=== PATIENT | female | born 1985 | race Caucasian/White ===

== ENCOUNTER 2017-06-18 23:32 | Emergency (ER) | payer OTHER ==
--- NOTE | 2017-06-18 23:50 | EDM.PDOC ---
ED HPI GENERAL MEDICAL PROBLEM - General Stated Complaint: 9 WEEKS AND IS SPOTTING Time Seen by Provider: 06/18/17 23:47 Source of Information: Reports: Patient - History of Present Illness INITIAL COMMENTS - FREE TEXT/NARRATIVE: HISTORY AND PHYSICAL: History of present illness: []32-year-old 01 at 9 weeks by uncertain dates no wall be care during this outside of diagnosing the Presents with vaginal bleeding/spotting that began yesterday some heavier flow today with passage of a couple of clots no low back pain some mild 2 out of 10 pelvic crampy pain No fever nausea vomiting chills sweats no chest pain shortness breath headache dizziness palpitation about a urine symptoms No low back pain Patient previously gave to a viable male at term with no complication Review of systems: As per history of present illness and below otherwise all systems reviewed and negative. Past medical history: As per history of present illness and as reviewed below otherwise noncontributory. Surgical history: As per history of present illness and as reviewed below otherwise noncontributory. Social history: No reported history of drug or alcohol abuse. Family history: As per history of present illness and as reviewed below otherwise noncontributory. Physical exam: HEENT: Atraumatic, normocephalic, pupils reactive, negative for conjunctival pallor or scleral icterus, mucous membranes moist, throat clear, neck supple, nontender, trachea midline. Lungs: Clear to auscultation, breath sounds equal bilaterally, chest nontender. Heart: S1S2, regular, negative for clicks, rubs, or JVD. Abdomen: Soft, nondistended, nontender. Negative for masses or hepatosplenomegaly. Negative for costovertebral tenderness. Pelvis: Stable nontender. Genitourinary: External vaginal exam a mass scarred lesion internal there is blood in the vaginal vault with a couple of small clots no products of conception no discharge cervix appears to be starting to open to a fingertip but is not fully open at this time Rectal: Deferred. Extremities: Atraumatic, negative for cords or calf pain. Neurovascular unremarkable. Neuro: Awake, alert, oriented. Cranial nerves II through XII unremarkable. Cerebellum unremarkable. Motor and sensory unremarkable throughout. Exam nonfocal. Diagnostics: []Lab as below Ultrasound OB [employer]: [][place] 5 per 325 one to 2 tab by mouth every 4-6 hours when necessary #30 no refill Return if symptoms persist or worsen or intractable pain vomiting or fever Follow-up with OB on Tuesday as scheduled Dr. cox Impression: Threatened Cervix appears to be closed at this time but on exam starting to open to a fingertip []32-year-old female 01 LMP April 15, 2017 ABO type B positive 9-2/7 weeks by uncertain dates Ultrasound is consistent with gestational sac and IUP a 6-7 week no heart activity Definitive disposition and diagnosis as appropriate pending reevaluation and review of above. 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 ED EXAM, GENERAL - Physical Exam Exam: See Below Course - Vital Signs Last Recorded V/S: Last Vital Signs Temp 36.1 C 06/18/17 23:47 Pulse 60 06/19/17 00:49 Resp 16 06/19/17 00:49 BP 129/76 06/19/17 00:49 Pulse Ox 97 06/19/17 00:49 - Orders/Labs/Meds Orders: Active Orders 24 hr Category Date Time Status OB Ltd 1 or More Fetus [US] Stat Exams 06/18/17 23:39 Taken Labs: Laboratory Tests 06/18/17 06/19/17 06/19/17 Range/Units 23:55 00:03 00:03 WBC 8.95 (4.0-11.0) K/uL RBC 4.16 L (4.30-5.90) M/uL Hgb 12.7 (12.0-16.0) g/dL Hct 37.1 (36.0-46.0) % MCV 89.2 (80.0-98.0) fL MCH 30.5 (27.0-32.0) pg MCHC 34.2 (31.0-37.0) g/dL RDW Std Deviation 39.3 (28.0-62.0) fl RDW Coeff of Jay 12 (11.0-15.0) % Plt Count 273 (150-400) K/uL MPV 10.90 (7.40-12.00) fL Neut % (Auto) 62.2 (48.0-80.0) % Lymph % (Auto) 28.9 (16.0-40.0) % [place] % (Auto) 7.3 (0.0-15.0) % Eos % (Auto) 1.5 (0.0-7.0) % Baso % (Auto) 0.1 (0.0-1.5) % Neut # (Auto) 5.6 (1.4-5.7) K/uL Lymph # (Auto) 2.6 H (0.6-2.4) K/uL [place] # (Auto) 0.7 (0.0-0.8) K/uL Eos # (Auto) 0.1 (0.0-0.7) K/uL Baso # (Auto) 0.0 (0.0-0.1) K/uL Nucleated RBC % 0.0 /100WBC Nucleated RBCs # 0 K/uL Sodium 140 (136-146) mmol/L Potassium 4.3 (3.5-5.1) mmol/L Chloride 103 (98-110) mmol/L Carbon Dioxide 26 (21-31) mmol/L BUN 15 (6.0-23.0) mg/dL Creatinine 0.8 (0.6-1.5) mg/dL Est Cr Clr Drug Dosing 99.08 mL/min Estimated GFR (MDRD) > 60.0 ml/min Glucose 89 (60-110) mg/dL Calcium 9.8 (8.8-10.8) mg/dL Total Bilirubin 0.4 (0.1-1.5) mg/dL AST 17 (5-40) IU/L ALT 14 (8-54) IU/L Alkaline Phosphatase 82 (40-150) Total Protein 7.3 (6.0-8.0) g/dL Albumin 4.2 (3.5-5.0) g/dL Globulin 3.1 (2.0-3.5) g/dL Albumin/Globulin Ratio 1.4 (1.3-2.8) HCG, Quant 20686.7 mIU/mL Urine Color YELLOW Urine Appearance CLEAR Urine pH 6.0 (5.0-8.0) Ur Specific [place] 1.015 (1.001-1.035) Urine Protein NEGATIVE (NEGATIVE) mg/dL Urine Glucose (UA) NEGATIVE (NEGATIVE) mg/dL Urine Ketones NEGATIVE (NEGATIVE) mg/dL Urine Occult Blood LARGE H (NEGATIVE) Urine Nitrite NEGATIVE (NEGATIVE) Urine Bilirubin NEGATIVE (NEGATIVE) Urine Urobilinogen 0.2 (<2.0) EU/dL Ur Leukocyte Esterase NEGATIVE (NEGATIVE) Urine RBC 15-35 (0-2/HPF) Urine WBC 0-2 (0-5/HPF) Ur Epithelial Cells RARE (NONE-FEW) Urine Bacteria FEW (NEGATIVE) Urine Mucus RARE (NONE-MOD) Blood Type 06/19/17 Range/Units 00:03 WBC (4.0-11.0) K/uL RBC (4.30-5.90) M/uL Hgb (12.0-16.0) g/dL Hct (36.0-46.0) % MCV (80.0-98.0) fL MCH (27.0-32.0) pg MCHC (31.0-37.0) g/dL RDW Std Deviation (28.0-62.0) fl RDW Coeff of Jay (11.0-15.0) % Plt Count (150-400) K/uL MPV (7.40-12.00) fL Neut % (Auto) (48.0-80.0) % Lymph % (Auto) (16.0-40.0) % [place] % (Auto) (0.0-15.0) % Eos % (Auto) (0.0-7.0) % Baso % (Auto) (0.0-1.5) % Neut # (Auto) (1.4-5.7) K/uL Lymph # (Auto) (0.6-2.4) K/uL [place] # (Auto) (0.0-0.8) K/uL Eos # (Auto) (0.0-0.7) K/uL Baso # (Auto) (0.0-0.1) K/uL Nucleated RBC % /100WBC Nucleated RBCs # K/uL Sodium (136-146) mmol/L Potassium (3.5-5.1) mmol/L Chloride (98-110) mmol/L Carbon Dioxide (21-31) mmol/L BUN (6.0-23.0) mg/dL Creatinine (0.6-1.5) mg/dL Est Cr Clr Drug Dosing mL/min Estimated GFR (MDRD) ml/min Glucose (60-110) mg/dL Calcium (8.8-10.8) mg/dL Total Bilirubin (0.1-1.5) mg/dL AST (5-40) IU/L ALT (8-54) IU/L Alkaline Phosphatase (40-150) Total Protein (6.0-8.0) g/dL Albumin (3.5-5.0) g/dL Globulin (2.0-3.5) g/dL Albumin/Globulin Ratio (1.3-2.8) HCG, Quant mIU/mL Urine Color Urine Appearance Urine pH (5.0-8.0) Ur Specific [place] (1.001-1.035) Urine Protein (NEGATIVE) mg/dL Urine Glucose (UA) (NEGATIVE) mg/dL Urine Ketones (NEGATIVE) mg/dL Urine Occult Blood (NEGATIVE) Urine Nitrite (NEGATIVE) Urine Bilirubin (NEGATIVE) Urine Urobilinogen (<2.0) EU/dL Ur Leukocyte Esterase (NEGATIVE) Urine RBC (0-2/HPF) Urine WBC (0-5/HPF) Ur Epithelial Cells (NONE-FEW) Urine Bacteria (NEGATIVE) Urine Mucus (NONE-MOD) Blood Type B POSITIVE Departure - Departure Time of Disposition: 01:18 Disposition: Home, Self-Care 01 Condition: Good Clinical Impression: Threatened - Discharge Information Additional Instructions: [][place] 5 per 325 one to 2 tab by mouth every 4-6 hours when necessary #30 no refill Return if symptoms persist or worsen or intractable pain vomiting or fever Follow-up with OB on Tuesday as scheduled Dr. cox The following information is given to patients seen in the emergency department who are being discharged to home. This information is to outline your options for follow-up care. We provide all patients seen in our emergency department with a follow-up referral. The need for follow-up, as well as the timing and circumstances, are variable depending upon the specifics of your emergency department visit. If you don't have a primary care physician on staff, we will provide you with a referral. We always advise you to contact your personal physician following an emergency department visit to inform them of the circumstance of the visit and for follow-up with them and/or the need for any referrals to a consulting specialist. The emergency department will also refer you to a specialist when appropriate. This referral assures that you have the opportunity for follow-up care with a specialist. All of these measure are taken in an effort to provide you with optimal care, which includes your follow-up. Under all circumstances we always encourage you to contact your private physician who remains a resource for coordinating your care. When calling for follow-up care, please make the office aware that this follow-up is from your recent emergency room visit. If for any reason you are refused follow-up, please contact the [facility] emergency department at and asked to speak to the emergency department charge nurse. - My Orders Last 24 Hours: My Active Orders 06/18/17 23:39 OB Ltd 1 or More Fetus [US] Stat - Assessment/Plan Last 24 Hours: My Active Orders 06/18/17 23:39 OB Ltd 1 or More Fetus [US] Stat
[2017-06-19 00:40] LABS: CHLORIDE,CL 103 mmol/L (98-110); SODIUM,NA 140 mmol/L (136-146)
[2017-06-19 01:41] VITALS: BP 132/76
--- NOTE | 2017-06-20 12:33 | US ---
EXAM DATE: 06/18/17 PATIENT'S AGE: 32 Patient: SOPHIA SALMON Facility: [place], [place] Site . Site : [id number] Study: US OB Pelvis [id number]/13/2017 12:28:04 AM Ordering Physician: Doctor Johnson Final Report: INDICATION: . Bleeding. TECHNIQUE: Ultrasound OB pelvis transvaginal. Real time contreras scale imaging of the pelvis was performed. Color and spectral Doppler evaluation of the ovaries was performed. COMPARISON: None FINDINGS: An oblong gestational sac is identified averaging 2.1 cm corresponding to gestational age of 7 weeks 1 day. A yolk sac is identified. Possible small pole measuring 0.45 cm corresponding to gestational age of 6 weeks 2 days. No cardiac activity is identified. No subchorionic hemorrhage. The right ovary measures 2.0 x 1.7 x 1.7 cm. No ovarian or adnexal mass. Normal arterial and venous flow. The left ovary measures 3.0 x 1.3 x 2.5 cm. No ovarian or adnexal mass. Normal arterial and venous flow. No free fluid in the pelvis. IMPRESSION: Findings are consistent with early IUP. However, the gestational sac is somewhat abnormal in shape and appearance. Recommend beta HCG and ultrasound follow-up. Dictated by Elmo Tyler MD @ 06/19/2017 1:02:36 AM Dictated by: Elmo Tyler MD @ 06/19/2017 01:03:25 (Electronic Signature) Report Signed by Proxy. TERI
== END 2017-06-19 01:30 | disposition home or self-care (01) ==
LOC: MW.ED 23:32
DX: O20.0 Threatened abortion (principal); J45.909 Unspecified asthma, uncomplicated; Z3A.09 9 weeks gestation of pregnancy
CPT/HCPCS: 36415; 76815; 76815-26; 80053; 81001; 84702; 85025; 86900; 86901; 99282; 99284-25

== ENCOUNTER 2018-05-03 19:47 | Inpatient (IN) | payer OTHER ==
[2018-05-03] MEDS ORDERED: Sodium Chloride 0.9% 10 ML Syringe FLUSH PRN (23:13)
[2018-05-03] MEDS ORDERED: Sodium Chloride 0.9% 2.5 ML Syringe FLUSH PRN (23:13)
[2018-05-03] MEDS ORDERED: Butorphanol 1 MG/ML SDV IVPUSH PRN (23:13)
[2018-05-03] MEDS ORDERED: Lidocaine 1% 50 ML MDV INJECT PRN (23:13)
[2018-05-03] MEDS ORDERED: Methylergonovine 0.2 MG/1 ML Amp IM PRN (23:13)
[2018-05-03] MEDS ORDERED: Carboprost Tromethamine 250 MCG/1 ML Amp IM PRN (23:13)
[2018-05-03] MEDS ORDERED: Nalbuphine 10 MG/1 ML Vial IVPUSH PRN (23:13)
[2018-05-03] MEDS ORDERED: Water For Irrigation,Sterile 1,000 ML Container IRR PRN (23:13)
[2018-05-03] MEDS ORDERED: Misoprostol 200 MCG Tab PO PRN (23:13)
[2018-05-03] MEDS ORDERED: Tranexamic Acid 1,000 MG in Sodium Chloride 0.9% 100 ML IV PRN (23:13)
[2018-05-03] MEDS ORDERED: Oxytocin/0.9 % Sodium Chloride 30 UNIT/500 ML BAG IV SCH (23:15)
[2018-05-03] MEDS ORDERED: Ampicillin 2 GM in Sodium Chloride 0.9% 100 ML IV ONE (23:45)
[2018-05-03] MEDS: Lactated Ringers 1,000 ML IV SCH (23:45)
[2018-05-04] MEDS: Ampicillin 1 GM in Sodium Chloride 0.9% 50 ML IV SCH ×3 (03:45→11:45)
[2018-05-04] MEDS: Lactated Ringers 1,000 ML IV SCH ×3 (03:45→13:09)
--- NOTE | 2018-05-04 04:09 | PCM.PREANE ---
Preanesthetic Assessment - Anesthesia/Transfusion/Family Hx Anesthesia History: Prior Anesthesia Without Reaction Transfusion History: No Prior Transfusion(s) - Review of Systems General: No Symptoms Pulmonary: No Symptoms Cardiovascular: No Symptoms Gastrointestinal: No Symptoms Neurological: No Symptoms Other: Reports: None - Physical Assessment Height: 5 ft 6.5 in Weight: 108.862 kg ASA Class: 2 Mental Status: Alert & Oriented x3 Airway Class: Mallampati = 2 Dentition: Reports: Normal Dentition Thyro-Mental Finger Breadths: 3 Mouth Opening Finger Breadths: 3 ROM/Head Extension: Full Lungs: Clear to Auscultation, Normal Respiratory Effort Cardiovascular: Regular Rate, Regular Rhythm - Lab Values: Laboratory Last Values WBC 7.91 K/uL (4.0-11.0) 05/03/18 23:30 RBC 3.95 M/uL (4.30-5.90) L 05/03/18 23:30 Hgb 11.8 g/dL (12.0-16.0) L 05/03/18 23:30 Hct 35.0 % (36.0-46.0) L 05/03/18 23:30 MCV 88.6 fL (80.0-98.0) 05/03/18 23:30 MCH 29.9 pg (27.0-32.0) 05/03/18 23:30 MCHC 33.7 g/dL (31.0-37.0) 05/03/18 23:30 RDW Std Deviation 39.0 fl (28.0-62.0) 05/03/18 23:30 RDW Coeff of Jay 13 % (11.0-15.0) 05/03/18 23:30 Plt Count 246 K/uL (150-400) 05/03/18 23:30 MPV 11.90 fL (7.40-12.00) 05/03/18 23:30 Blood Type B POSITIVE 05/03/18 23:30 Antibody Screen NEGATIVE 05/03/18 23:30 - Allergies Allergies/Adverse Reactions: Allergies Allergy/AdvReac Type Severity Reaction Status Date / Time No Known Allergies Allergy Verified 03/22/18 00:05 - Acknowledgements Anesthesia Type Planned: Epidural Pt an Appropriate Candidate for the Planned Anesthesia: Yes Alternatives and Risks of Anesthesia Discussed w Pt/Guardian: Yes Pt/Guardian Understands and Agrees with Anesthesia Plan: Yes PreAnesthesia Questionnaire HEENT History: Reports: None Cardiovascular History: Reports: None Respiratory History: Reports: Asthma Gastrointestinal History: Reports: GERD Genitourinary History: Reports: None 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 Respiratory Surgical History: Reports: None Musculoskeletal Surgical History: Reports: Arthroscopic Knee, Other (See Below) Other Musculoskeletal Surgeries/Procedures:: Right wrist bone graft. - SUBSTANCE USE Smoking Status *Q: Never Smoker Tobacco Use Within Last Twelve Months: No Second Hand Smoke Exposure: No Recreational Drug Use History: No - HOME MEDS Home Medications: Home Meds Albuterol [Ventolin HFA] 8 gm INH ASDIRECTED 06/18/17 [History] Pnv No.95/Ferrous Fum/Folic AC [ Multivitamin Tablet] 1 each PO DAILY [History] Omeprazole Magnesium [Prilosec Otc] 20 mg PO DAILY 04/30/18 [History] - CURRENT (IN HOUSE) MEDS Current Meds: Current Medications Butorphanol Tartrate (Stadol) 1 mg IVPUSH Q1H PRN PRN Reason: Pain Carboprost Tromethamine (Hemabate Ds) 250 mcg IM ASDIRECTED PRN PRN Reason: Post Hemorrhage Tranexamic Acid 1,000 mg/ (Sodium Chloride) 110 mls @ 660 mls/hr IV ONETIME PRN PRN Reason: Bleeding Lactated Ringer's (Ringers, Lactated) 1,000 mls @ 150 mls/hr IV ASDIRECTED DONNA Last Admin: 05/04/18 03:45 Dose: 999 mls/hr Oxytocin/Sodium Chloride (Oxytocin 30 Unit/500 Ml-Ns) 30 unit in 500 mls @ 999 mls/hr IV TITRATE DONNA Ampicillin Sodium 1 gm/ Sodium (Chloride) 50 mls @ 100 mls/hr IV Q4H DONNA Last Admin: 05/04/18 03:45 Dose: 100 mls/hr Lidocaine HCl (Xylocaine 1%) 50 ml INJECT .ONCE PRN PRN Reason: Laceration repair Methylergonovine Maleate (Methergine) 0.2 mg IM ASDIRECTED PRN PRN Reason: Post Hemorrhage Misoprostol (Cytotec) 200 mcg PO .ONCE PRN PRN Reason: Post Hemorrhage Nalbuphine HCl (Nubain) 10 mg IVPUSH Q1H PRN PRN Reason: Pain (severe 7-10) Sodium Chloride (Saline Flush) 10 ml FLUSH ASDIRECTED PRN PRN Reason: Keep Vein Open Sodium Chloride (Saline Flush) 2.5 ml FLUSH ASDIRECTED PRN PRN Reason: Keep Vein Open Sterile Water (Sterile Water For Irrigation) 1,000 ml IRR ASDIRECTED PRN PRN Reason: delivery Discontinued Medications Ampicillin Sodium 2 gm/ Sodium (Chloride) 100 mls @ 200 mls/hr IV ONETIME ONE Stop: 05/04/18 00:14 Last Admin: 05/03/18 23:50 Dose: 200 mls/hr
[2018-05-04] MEDS ORDERED: Oxytocin/0.9 % Sodium Chloride 30 UNIT/500 ML BAG IV SCH (11:45)
[2018-05-04] MEDS ORDERED: Docusate Sodium 100 MG Cap PO PRN (14:43)
[2018-05-04] MEDS ORDERED: Lanolin 100% Cream 7 GM Tube TOP PRN (14:43)
[2018-05-04] MEDS ORDERED: Benzocaine/Menthol 20%-0.5% Spray 78 GM Cannister TOP PRN (14:43)
[2018-05-04] MEDS ORDERED: oxyCODONE 5 MG Tab PO PRN (14:43)
[2018-05-04] MEDS ORDERED: Bisacodyl 10 MG Supp RECTAL PRN (14:43)
[2018-05-04] MEDS ORDERED: Witch Hazel Medicated Pads 40/Jar TOP PRN (14:43)
[2018-05-04] MEDS ORDERED: Aluminum Hydroxide/Magnesium Hydroxide/Simethicone Susp 30 ML Cup PO PRN (14:43)
[2018-05-04] MEDS ORDERED: Ibuprofen 400 MG Tab PO PRN (14:43)
[2018-05-04] MEDS ORDERED: Acetaminophen 500 MG Tab PO PRN ×2 (14:43)
--- NOTE | 2018-05-04 14:48 | PCM.OPNOTE ---
- General Post-Op/Procedure Note Date of Surgery/Procedure: 05/04/18 Operative Procedure(s): /IP Findings: Viable female, APGARs 9, 9 weight pending. Spontaneous delivery intact placenta with 3V cord Pre Op Diagnosis: 37/6 week IUP. Labor. GBBS + Post-Op Diagnosis: Same Anesthesia Technique: Epidural Primary Surgeon: Rola Hale EBL in mLs: 300 Condition: Good Free Text/Narrative:: Dictation [id number]
--- NOTE | 2018-05-04 17:26 | OR ---
SURGEON: Rola Hale M.D. DATE OF PROCEDURE: 05/04/2018 PREOPERATIVE DIAGNOSES: 1. 37 and 6-week intrauterine . 2. Labor. 3. Group B beta strep positive. POSTOPERATIVE DIAGNOSIS: 1. 37 and 6-week intrauterine . 2. Labor. 3. Group B beta strep positive. PROCEDURE: Spontaneous vaginal delivery, intact perineum. ANESTHESIA: Epidural. ESTIMATED BLOOD LOSS: 300 mL. COMPLICATIONS: None. FINDINGS: Viable female, scores 9 at 1 minute, 9 at 5 minutes. Weight is pending. Spontaneous delivery, intact placenta, 3-vessel cord. DISPOSITION: Infant to nursery, mom in LDRP. PROCEDURE DETAILS: Shannan is a 33-year-old, G2, P1, at 37 and 6 weeks' gestational age, who presented yesterday evening with regular contractions every 2 to 4 minutes. With observation, she changed her cervix from 4 cm dilatation to 5 cm dilatation; therefore, she was admitted, routine labs were drawn, IV hydration was initiated. She was also initiated on ampicillin prophylaxis. She did continue to progress slowly through the sausage smoker hours, underwent regional anesthesia from epidural, shortly before 9:00 a.m. was found to be 67 cm, 80% effaced, 0 station. Amniotomy was performed as she has had 3 doses of her IV antibiotics. Clear fluid was returned. Over the next few hours, the patient still made minimal cervical change past 7 cm dilatation, and contractions are now spacing apart, 4 to 6 minutes apart. Therefore, she was initiated on Pitocin augmentation, responded nicely to this and continued to progress, shortly before 2:00 p.m. was found to be complete, 100% effaced, +2 station, pushed readily to a +3 station, I was called for delivery. Upon my arrival, the patient was placed in modified dorsal position, was prepped and draped in the usual aseptic manner. Continued with pushing efforts, pushed to +4 station, was able to deliver 's head atraumatically, spontaneously, followed by anterior shoulder, posterior shoulder, and remaining body without difficulty. The infant's oropharynx and nares were bulb suctioned. Cord was clamped x2 and cut. Infant was handed off to her mother, attending nursing staff at her side. Cord arterial, cord venous, cord blood sampling obtained. Light pressure was applied while the placenta was delivered spontaneously intact. Vigorous fundal uterine massage was then applied while 30 units of Pitocin was delivered in 500 mL IV fluid. Upon inspection of cervix, vaginal side, and perineum, these were found to be intact. Uterus remained firm. Sponge count is correct. The patient remained in LDRP. Infant to nursery. VIDAL / DARSHANA /[id number]
[2018-05-05] MEDS: Ibuprofen 800 MG Tab PO PRN ×2 (00:18→09:57)
--- NOTE | 2018-05-05 07:45 | PCM48HPAN ---
Post Anesthesia Note - EVALUATION WITHIN 48HRS OF ANESTHETIC Vital Signs in Normal Range: Yes Patient Participated in Evaluation: Yes Respiratory Function Stable: Yes Airway Patent: Yes Cardiovascular Function Stable: Yes Hydration Status Stable: Yes Pain Control Satisfactory: Yes Nausea and Vomiting Control Satisfactory: Yes Mental Status Recovered: Yes Resp Rate: 20
--- NOTE | 2018-05-05 08:02 | PCM.PNPP ---
<Randa Haro - Last Filed: 05/05/18 08:00> - General Info Date of Service: 05/05/18 Functional Status: Reports: Pain Controlled, Tolerating Diet, Ambulating, Urinating - Review of Systems General: Denies: Fever, Weakness, Fatigue Pulmonary: Denies: Shortness of Breath, Pleuritic Chest Pain, Cough Cardiovascular: Denies: Chest Pain, Palpitations, Dyspnea on Exertion Gastrointestinal: Denies: Abdominal Pain Genitourinary: Denies: Dysuria - General Info Date of Service: 05/05/18 - Patient Data Vital Signs - Most Recent: Last Vital Signs Temp 36.6 C 05/05/18 04:00 Pulse 86 05/04/18 20:09 Resp 20 05/05/18 07:44 BP 126/58 L 05/05/18 04:00 Pulse Ox 96 05/05/18 04:00 Weight - Most Recent: 108.862 kg Lab Results - Last 24 Hours: Laboratory Results - last 24 hr 05/05/18 Range/Units 05:04 Hgb 10.5 L (12.0-16.0) g/dL Hct 31.2 L (36.0-46.0) % Med Orders - Current: Current Medications Acetaminophen (Tylenol Extra Strength) 500 mg PO Q4H PRN PRN Reason: Pain Acetaminophen (Tylenol Extra Strength) 1,000 mg PO Q4H PRN PRN Reason: Pain Al Hydroxide/Mg Hydroxide (Mag-Al Plus) 30 ml PO Q8H PRN PRN Reason: Heartburn Benzocaine/Menthol (Dermoplast Pain Relief 20%-0.5% Arion) 78 gm TOP ASDIRECTED PRN PRN Reason: Perineal Comfort Measure Last Admin: 05/04/18 18:15 Dose: 78 gm Bisacodyl (Dulcolax) 10 mg RECTAL .ONCE PRN PRN Reason: Constipation Butorphanol Tartrate (Stadol) 1 mg IVPUSH Q1H PRN PRN Reason: Pain Carboprost Tromethamine (Hemabate Ds) 250 mcg IM ASDIRECTED PRN PRN Reason: Post Hemorrhage Docusate Sodium (Colace) 100 mg PO BID PRN PRN Reason: Constipation Emollient Ointment (Lansinoh Hpa) 0 gm TOP ASDIRECTED PRN PRN Reason: Sore Nipples Last Admin: 05/04/18 18:15 Dose: 7 gm Tranexamic Acid 1,000 mg/ (Sodium Chloride) 110 mls @ 660 mls/hr IV ONETIME PRN PRN Reason: Bleeding Lactated Ringer's (Ringers, Lactated) 1,000 mls @ 150 mls/hr IV ASDIRECTED DONNA Last Admin: 05/04/18 13:09 Dose: 150 mls/hr Oxytocin/Sodium Chloride (Oxytocin 30 Unit/500 Ml-Ns) 30 unit in 500 mls @ 999 mls/hr IV TITRATE DONNA Oxytocin/Sodium Chloride (Oxytocin 30 Unit/500 Ml-Ns) 30 unit in 500 mls @ 2 mls/hr IV TITRATE DONNA; Protocol Last Infusion: 05/04/18 14:33 Dose: 500 munits/min, 500 mls/hr Ibuprofen (Motrin) 400 mg PO Q4H PRN PRN Reason: Pain Ibuprofen (Motrin) 800 mg PO Q6H PRN PRN Reason: Pain Last Admin: 05/05/18 00:18 Dose: 800 mg Methylergonovine Maleate (Methergine) 0.2 mg IM ASDIRECTED PRN PRN Reason: Post Hemorrhage Misoprostol (Cytotec) 200 mcg PO .ONCE PRN PRN Reason: Post Hemorrhage Oxycodone HCl (Oxycodone) 5 mg PO Q2H PRN PRN Reason: Pain Sodium Chloride (Saline Flush) 10 ml FLUSH ASDIRECTED PRN PRN Reason: Keep Vein Open Witvj Sprague (Wernerckbreanna) 1 pad TOP ASDIRECTED PRN PRN Reason: comfort care Last Admin: 05/04/18 18:14 Dose: 1 pad Discontinued Medications Ampicillin Sodium 2 gm/ Sodium (Chloride) 100 mls @ 200 mls/hr IV ONETIME ONE Stop: 05/04/18 00:14 Last Admin: 05/03/18 23:50 Dose: 200 mls/hr Ampicillin Sodium 1 gm/ Sodium (Chloride) 50 mls @ 100 mls/hr IV Q4H DONNA Last Admin: 05/04/18 11:45 Dose: 100 mls/hr Fentanyl/Bupivacaine HCl (Lmzpxvio-Fhgzw-Zz 2 Mcg/Ml-0.125%) Confirm Administered Dose 100 mls @ as directed EP .STK-MED ONE Stop: 05/04/18 04:14 Lidocaine HCl (Xylocaine 1%) 50 ml INJECT .ONCE PRN PRN Reason: Laceration repair Nalbuphine HCl (Nubain) 10 mg IVPUSH Q1H PRN PRN Reason: Pain (severe 7-10) Sodium Chloride (Saline Flush) 2.5 ml FLUSH ASDIRECTED PRN PRN Reason: Keep Vein Open Sterile Water (Sterile Water For Irrigation) 1,000 ml IRR ASDIRECTED PRN PRN Reason: delivery Last Admin: 05/04/18 14:30 Dose: 1,000 ml - Infant Interaction Infant Disposition, : in Room with Family Interaction: Holding Infant Feeding: Breastfed Infant; Nursed Well Support Person: - Recovery Exam Fundal Tone: Firm Fundal Level: 1 Fingerbreadths Below Umbilicus Fundal Placement: Midline Lochia Amount: Scant Lochia Color: Rubra/Red Perineum Description: Intact, Minimal Bruising/Swelling Episiotomy/Laceration: None Bladder Status: Voiding Urinary Elimination: Voided - Exam General: Alert, Oriented Neck: Supple Lungs: Clear to Auscultation, Normal Respiratory Effort Cardiovascular: Regular Rate, Regular Rhythm GI/Abdominal Exam: Normal Bowel Sounds, Soft, Non-Tender, No Distention, No Mass Extremities: Normal Inspection, Normal Capillary Refill, Pedal Edema (trace) Skin: Warm, Dry, Intact Psy/Mental Status: Alert - Problem List Review Problem List Initiated/Reviewed/Updated: Yes - Assessment Assessment:: PPD#1 s/p . Minimal pain and lochia. Breast feeding well. Discharge home today. - Plan Plan:: Discharge instructions reviewed. Pelvic rest for 6 weeks. Continue PNV while breast feeding. Can use OTC ibuprofen/tylenol as needed for pain. Instructed patient to call if she develops fever greater than 101 or bleeding through a large pad an hour. F/U with [facility] in 6 weeks. <Rola Hale - Last Filed: 05/05/18 08:58> - Patient Data Vital Signs - Most Recent: Last Vital Signs Temp 36.5 C 05/05/18 07:30 Pulse 86 05/04/18 20:09 Resp 20 05/05/18 07:44 BP 124/65 05/05/18 07:30 Pulse Ox 95 05/05/18 07:30 Lab Results - Last 24 Hours: Laboratory Results - last 24 hr 05/05/18 Range/Units 05:04 Hgb 10.5 L (12.0-16.0) g/dL Hct 31.2 L (36.0-46.0) % Med Orders - Current: Current Medications Acetaminophen (Tylenol Extra Strength) 500 mg PO Q4H PRN PRN Reason: Pain Acetaminophen (Tylenol Extra Strength) 1,000 mg PO Q4H PRN PRN Reason: Pain Al Hydroxide/Mg Hydroxide (Mag-Al Plus) 30 ml PO Q8H PRN PRN Reason: Heartburn Benzocaine/Menthol (Dermoplast Pain Relief 20%-0.5% Arion) 78 gm TOP ASDIRECTED PRN PRN Reason: Perineal Comfort Measure Last Admin: 05/04/18 18:15 Dose: 78 gm Bisacodyl (Dulcolax) 10 mg RECTAL .ONCE PRN PRN Reason: Constipation Butorphanol Tartrate (Stadol) 1 mg IVPUSH Q1H PRN PRN Reason: Pain Carboprost Tromethamine (Hemabate Ds) 250 mcg IM ASDIRECTED PRN PRN Reason: Post Hemorrhage Docusate Sodium (Colace) 100 mg PO BID PRN PRN Reason: Constipation Emollient Ointment (Lansinoh Hpa) 0 gm TOP ASDIRECTED PRN PRN Reason: Sore Nipples Last Admin: 05/04/18 18:15 Dose: 7 gm Tranexamic Acid 1,000 mg/ (Sodium Chloride) 110 mls @ 660 mls/hr IV ONETIME PRN PRN Reason: Bleeding Lactated Ringer's (Ringers, Lactated) 1,000 mls @ 150 mls/hr IV ASDIRECTED DONNA Last Admin: 05/04/18 13:09 Dose: 150 mls/hr Oxytocin/Sodium Chloride (Oxytocin 30 Unit/500 Ml-Ns) 30 unit in 500 mls @ 999 mls/hr IV TITRATE DONNA Oxytocin/Sodium Chloride (Oxytocin 30 Unit/500 Ml-Ns) 30 unit in 500 mls @ 2 mls/hr IV TITRATE DONNA; Protocol Last Infusion: 05/04/18 14:33 Dose: 500 munits/min, 500 mls/hr Ibuprofen (Motrin) 400 mg PO Q4H PRN PRN Reason: Pain Ibuprofen (Motrin) 800 mg PO Q6H PRN PRN Reason: Pain Last Admin: 05/05/18 00:18 Dose: 800 mg Methylergonovine Maleate (Methergine) 0.2 mg IM ASDIRECTED PRN PRN Reason: Post Hemorrhage Misoprostol (Cytotec) 200 mcg PO .ONCE PRN PRN Reason: Post Hemorrhage Oxycodone HCl (Oxycodone) 5 mg PO Q2H PRN PRN Reason: Pain Sodium Chloride (Saline Flush) 10 ml FLUSH ASDIRECTED PRN PRN Reason: Keep Vein Open Witch Darcie (Tucks) 1 pad TOP ASDIRECTED PRN PRN Reason: comfort care Last Admin: 05/04/18 18:14 Dose: 1 pad Discontinued Medications Ampicillin Sodium 2 gm/ Sodium (Chloride) 100 mls @ 200 mls/hr IV ONETIME ONE Stop: 05/04/18 00:14 Last Admin: 05/03/18 23:50 Dose: 200 mls/hr Ampicillin Sodium 1 gm/ Sodium (Chloride) 50 mls @ 100 mls/hr IV Q4H [facility] Last Admin: 05/04/18 11:45 Dose: 100 mls/hr Fentanyl/Bupivacaine HCl (Zecrlkgo-Gndll-Tg 2 Mcg/Ml-0.125%) Confirm Administered Dose 100 mls @ as directed EP .STK-MED ONE Stop: 05/04/18 04:14 Last Admin: 05/05/18 08:40 Dose: Not Given Lidocaine HCl (Xylocaine 1%) 50 ml INJECT .ONCE PRN PRN Reason: Laceration repair Nalbuphine HCl (Nubain) 10 mg IVPUSH Q1H PRN PRN Reason: Pain (severe 7-10) Sodium Chloride (Saline Flush) 2.5 ml FLUSH ASDIRECTED PRN PRN Reason: Keep Vein Open Sterile Water (Sterile Water For Irrigation) 1,000 ml IRR ASDIRECTED PRN PRN Reason: delivery Last Admin: 05/04/18 14:30 Dose: 1,000 ml - My Orders Last 24 Hours: My Active Orders 05/04/18 11:45 Oxytocin/0.9 % Sodium Chloride [Oxytocin 30 Unit/500 ML-NS] 30 unit in 500 ml IV TITRATE 05/04/18 14:43 Patient Status [ADT] Routine May Shower [RC] ASDIRECTED Up ad Nina [RC] ASDIRECTED Vital Signs [RC] PER UNIT ROUTINE Acetaminophen [Tylenol Extra Strength] 1,000 mg PO Q4H PRN Acetaminophen [Tylenol Extra Strength] 500 mg PO Q4H PRN Alum Hydrox/Mag Hydrox/Simeth [Mag-Al Plus] 30 ml PO Q8H PRN Benzocaine/Menthol [Dermoplast Pain Relief 20%-0.5% Arion] 78 gm TOP ASDIRECTED PRN Bisacodyl [Dulcolax] 10 mg RECTAL .ONCE PRN Docusate Sodium [Colace] 100 mg PO BID PRN Ibuprofen [Motrin] 400 mg PO Q4H PRN Ibuprofen [Motrin] 800 mg PO Q6H PRN Lanolin [Lansinoh HPA] See Dose Instructions TOP ASDIRECTED PRN Witch Darcie [Tucks] 1 pad TOP ASDIRECTED PRN oxyCODONE 5 mg PO Q2H PRN Assess Lochia [WOMSER] Per Unit Routine Assess Uterine Involution [WOMSER] Per Unit Routine Breast Pump [WOMSER] Per Unit Routine Ice Therapy [OM.PC] Per Unit Routine Perineal Care [OM.PC] Per Unit Routine Peripheral IV Discontinue [OM.PC] Routine Sitz Bath [OM.PC] Per Unit Routine 05/04/18 Dinner Regular Diet [DIET] - Plan Plan:: Patient seen and examined--agree with above
[2018-05-05 16:27] VITALS: BP 124/67
== END 2018-05-05 17:45 | disposition home or self-care (01) | DRG 775 ==
LOC: MW.OBCHECK 19:47 → MW.OB 19:49 → MW.OBCHECK 23:13 → OBSVTOIN 05-04 14:33 → MW.OB 05-04 17:00
PROVIDERS: ADMIT General Practice; ATTEND Obstetrics & Gynecology
PROC: 10E0XZZ Delivery of Products of Conception, External Approach (ICD-10-PCS; principal; 2018-05-04)
PROC: 3E0S3GC Introduction of Other Therapeutic Substance into Epidural Space, Percutaneous Approach (ICD-10-PCS; 2018-05-04)
DX: O99.824 Streptococcus B carrier state complicating childbirth (principal); Z3A.37 37 weeks gestation of pregnancy; Z37.0 Single live birth
CPT/HCPCS: 36415; 51702; 59025; 59409; 85014; 85018; 85027; 86850; 86900; 86901; A9270-GY; J0290; J2590; J7030; J7050; J7120

== ENCOUNTER 2019-09-12 05:57 | Inpatient (IN) | payer OTHER ==
[2019-09-12] MEDS ORDERED: Sodium Chloride 0.9% 10 ML SDV IV PRN (06:06)
[2019-09-12] MEDS ORDERED: Methylergonovine 0.2 MG/1 ML Amp IM PRN (06:06)
[2019-09-12] MEDS ORDERED: Misoprostol 200 MCG Tab PO PRN (06:06)
[2019-09-12] MEDS ORDERED: Lidocaine 1% 50 ML MDV INJECT PRN (06:06)
[2019-09-12] MEDS ORDERED: Nalbuphine 10 MG/1 ML Vial IVPUSH PRN (06:06)
[2019-09-12] MEDS ORDERED: Carboprost Tromethamine 250 MCG/1 ML Amp IM PRN (06:06)
[2019-09-12] MEDS ORDERED: Sodium Chloride 0.9% 2.5 ML Syringe FLUSH PRN (06:06)
[2019-09-12] MEDS ORDERED: Ondansetron 4 MG/2 ML SDV IVPUSH PRN (06:06)
[2019-09-12] MEDS ORDERED: Misoprostol 25 MCG (1/4 of 100 MCG) Tab VAG PRN ×4 (06:06→09:05)
[2019-09-12] MEDS ORDERED: Terbutaline 1 MG/ML SDV SUBCUT PRN ×2 (06:06→09:05)
[2019-09-12] MEDS ORDERED: Sodium Chloride 0.9% 10 ML Syringe FLUSH PRN (06:06)
[2019-09-12] MEDS ORDERED: Ampicillin 2 GM in Sodium Chloride 0.9% 100 ML IV ONE (06:06)
[2019-09-12] MEDS ORDERED: Water For Irrigation,Sterile 1,000 ML Container IRR PRN (06:06)
[2019-09-12] MEDS ORDERED: Butorphanol 1 MG/ML SDV IVPUSH PRN (06:06)
[2019-09-12] MEDS ORDERED: Tranexamic Acid 1,000 MG in Sodium Chloride 0.9% 100 ML IV PRN (06:06)
[2019-09-12] MEDS ORDERED: Oxytocin/0.9 % Sodium Chloride 30 UNIT/500 ML BAG IV SCH ×3 (06:15→09:15)
[2019-09-12] MEDS: Lactated Ringers 1,000 ML IV SCH ×2 (06:30→12:24)
[2019-09-12] MEDS ORDERED: Ampicillin 1 GM in Sodium Chloride 0.9% 50 ML IV SCH ×2 (07:15→11:00)
--- NOTE | 2019-09-12 11:40 | PCM.PREANE ---
Preanesthetic Assessment - Anesthesia/Transfusion/Family Hx Anesthesia History: Prior Anesthesia Without Reaction Family History of Anesthesia Reaction: No Transfusion History: No Prior Transfusion(s) Intubation History: Unknown - Review of Systems General: No Symptoms Pulmonary: No Symptoms Cardiovascular: No Symptoms Gastrointestinal: No Symptoms Neurological: No Symptoms Other: Reports: None - Physical Assessment Height: 5 ft 7 in Weight: 112.945 kg ASA Class: 2 Mental Status: Alert & Oriented x3 Airway Class: Mallampati = 2 Dentition: Reports: Normal Dentition Thyro-Mental Finger Breadths: 3 Mouth Opening Finger Breadths: 3 ROM/Head Extension: Full Lungs: Clear to Auscultation, Normal Respiratory Effort Cardiovascular: Regular Rate, Regular Rhythm - Lab Values: Laboratory Last Values WBC 9.83 K/uL (4.0-11.0) 09/12/19 06:25 RBC 4.44 M/uL (4.30-5.90) 09/12/19 06:25 Hgb 12.7 g/dL (12.0-16.0) 09/12/19 06:25 Hct 38.7 % (36.0-46.0) 09/12/19 06:25 MCV 87.2 fL (80.0-98.0) 09/12/19 06:25 MCH 28.6 pg (27.0-32.0) 09/12/19 06:25 MCHC 32.8 g/dL (31.0-37.0) 09/12/19 06:25 RDW Std Deviation 42.1 fl (28.0-62.0) 09/12/19 06:25 RDW Coeff of Jay 13 % (11.0-15.0) 09/12/19 06:25 Plt Count 214 K/uL (150-400) 09/12/19 06:25 MPV 11.80 fL (7.40-12.00) 09/12/19 06:25 Nucleated RBC % 0.0 /100WBC 09/12/19 06:25 Nucleated RBCs # 0 K/uL 09/12/19 06:25 Blood Type B POSITIVE 09/12/19 06:25 Antibody Screen NEGATIVE 09/12/19 06:25 - Allergies Allergies/Adverse Reactions: Allergies Allergy/AdvReac Type Severity Reaction Status Date / Time No Known Allergies Allergy Verified 03/22/18 00:05 - Acknowledgements Anesthesia Type Planned: Epidural Pt an Appropriate Candidate for the Planned Anesthesia: Yes Alternatives and Risks of Anesthesia Discussed w Pt/Guardian: Yes Pt/Guardian Understands and Agrees with Anesthesia Plan: Yes PreAnesthesia Questionnaire HEENT History: Reports: None Cardiovascular History: Reports: None Respiratory History: Reports: Asthma Gastrointestinal History: Reports: GERD Genitourinary History: Reports: None 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 Cardiovascular Surgical History: Reports: None Respiratory Surgical History: Reports: None GI Surgical History: Reports: None Female Surgical History: Reports: None Endocrine Surgical History: Reports: None Neurological Surgical History: Reports: None Musculoskeletal Surgical History: Reports: Arthroscopic Knee, Other (See Below) Other Musculoskeletal Surgeries/Procedures:: Right wrist bone graft. - SUBSTANCE USE Smoking Status *Q: Never Smoker Second Hand Smoke Exposure: No Recreational Drug Use History: No - HOME MEDS Home Medications: Home Meds Albuterol [Ventolin HFA] 8 gm INH ASDIRECTED 06/18/17 [History] Pnv No.95/Ferrous Fum/Folic AC [ Multivitamin Tablet] 1 each PO DAILY [History] Omeprazole Magnesium [Prilosec Otc] 20 mg PO DAILY 04/30/18 [History] - CURRENT (IN HOUSE) MEDS Current Meds: Current Medications Butorphanol Tartrate (Stadol) 1 mg IVPUSH Q1H PRN PRN Reason: Pain Carboprost Tromethamine (Hemabate Ds) 250 mcg IM ASDIRECTED PRN PRN Reason: Post Hemorrhage Lactated Ringer's (Ringers, Lactated) 1,000 mls @ 150 mls/hr IV ASDIRECTED DONNA Last Admin: 09/12/19 06:30 Dose: 150 mls/hr Tranexamic Acid 1,000 mg/ (Sodium Chloride) 110 mls @ 660 mls/hr IV ONETIME PRN PRN Reason: Bleeding Ampicillin Sodium 1 gm/ Sodium (Chloride) 50 mls @ 100 mls/hr IV Q4H [facility] Last Admin: 09/12/19 10:49 Dose: 100 mls/hr Oxytocin 30 unit/ Sodium (Chloride) 503 mls @ 503 mls/hr IV TITRATE DONNA Oxytocin 30 unit/ Sodium (Chloride) 503 mls @ 2.01 mls/hr IV TITRATE DONNA; Protocol Last Admin: 09/12/19 09:47 Dose: 2 munits/min, 2.01 mls/hr Lidocaine HCl (Xylocaine 1%) 50 ml INJECT ONETIME PRN PRN Reason: Laceration repair Methylergonovine Maleate (Methergine) 0.2 mg IM ASDIRECTED PRN PRN Reason: Post Hemorrhage Misoprostol (Cytotec) 200 mcg PO ONETIME PRN PRN Reason: Post Hemorrhage Misoprostol (Cytotec) 25 mcg VAG ONETIME PRN PRN Reason: Cervical Ripening Misoprostol (Cytotec) 25 mcg VAG Q4H PRN PRN Reason: Cervical Ripening Misoprostol (Cytotec) 25 mcg VAG ONETIME PRN PRN Reason: Cervical Ripening Misoprostol (Cytotec) 25 mcg VAG Q4H PRN PRN Reason: Cervical Ripening Nalbuphine HCl (Nubain) 10 mg IVPUSH Q1H PRN PRN Reason: Pain (severe 7-10) Ondansetron HCl (Zofran) 4 mg IVPUSH Q6H PRN PRN Reason: Nausea/Vomiting Sodium Chloride (Saline Flush) 10 ml FLUSH ASDIRECTED PRN PRN Reason: Keep Vein Open Sodium Chloride (Saline Flush) 2.5 ml FLUSH ASDIRECTED PRN PRN Reason: Keep Vein Open Sodium Chloride (Normal Saline) 10 ml IV ASDIRECTED PRN PRN Reason: IV Use Sterile Water (Sterile Water For Irrigation) 1,000 ml IRR ASDIRECTED PRN PRN Reason: delivery Terbutaline Sulfate (Brethine) 0.25 mg SUBCUT ASDIRECTED PRN PRN Reason: Tacysystole Terbutaline Sulfate (Brethine) 0.25 mg SUBCUT ASDIRECTED PRN PRN Reason: Tacysystole Discontinued Medications Ampicillin Sodium 2 gm/ Sodium (Chloride) 100 mls @ 200 mls/hr IV ONETIME ONE Stop: 09/12/19 06:35 Last Admin: 09/12/19 06:44 Dose: 200 mls/hr Oxytocin/Sodium Chloride (Oxytocin 30 Unit/500 Ml-Ns) 30 unit in 500 mls @ 500 mls/hr IV TITRATE DONNA Oxytocin/Sodium Chloride (Oxytocin 30 Unit/500 Ml-Ns) 30 unit in 500 mls @ 2 mls/hr IV TITRATE DONNA; Protocol Ampicillin Sodium 1 gm/ Sodium (Chloride) 50 mls @ 100 mls/hr IV Q4H DONNA Oxytocin/Sodium Chloride (Oxytocin 30 Unit/500 Ml-Ns) 30 unit in 500 mls @ 2 mls/hr IV TITRATE DONNA; Protocol Fentanyl/Bupivacaine HCl (Quwqkrhx-Cakdm-Ra 2 Mcg/Ml-0.125%) Confirm Administered Dose 100 mls @ as directed .ROUTE .STK-MED ONE Stop: 09/12/19 11:32
[2019-09-12] MEDS ORDERED: Docusate Sodium 100 MG Cap PO PRN (14:25)
[2019-09-12] MEDS ORDERED: Ibuprofen 400 MG Tab PO PRN (14:25)
[2019-09-12] MEDS ORDERED: oxyCODONE 5 MG Tab PO PRN (14:25)
[2019-09-12] MEDS ORDERED: Benzocaine/Menthol 20%-0.5% Spray 78 GM Cannister TOP PRN (14:25)
[2019-09-12] MEDS ORDERED: Witch Hazel Medicated Pads 40/Jar TOP PRN (14:25)
[2019-09-12] MEDS ORDERED: Acetaminophen 500 MG Tab PO PRN ×2 (14:25)
[2019-09-12] MEDS ORDERED: Lanolin 100% Cream 7 GM Tube TOP PRN (14:25)
[2019-09-12] MEDS ORDERED: Bisacodyl 10 MG Supp RECTAL PRN (14:25)
[2019-09-12] MEDS ORDERED: Aluminum Hydroxide/Magnesium Hydroxide/Simethicone Susp 30 ML Cup PO PRN (14:25)
--- NOTE | 2019-09-12 15:15 | PCM.OPNOTE ---
- General Post-Op/Procedure Note Date of Surgery/Procedure: 09/12/19 Operative Procedure(s): Dictation #: [id number] Condition: Good
--- NOTE | 2019-09-12 15:50 | OR ---
SURGEON: Rola Hale M.D. DATE OF PROCEDURE: PREOPERATIVE DIAGNOSIS: A 39-week intrauterine . POSTOPERATIVE DIAGNOSIS: A 39-week intrauterine . PROCEDURE: Spontaneous vaginal delivery with intact perineum. PRIMARY SURGEON: Rola Hale MD. EXECUTIVE PASTRY CHEF: Marilou Duarte, MS4. ESTIMATED BLOOD LOSS: 200 mL. ANESTHESIA: Epidural. FINDINGS: Viable male. scores 8 and 9 at one and five minutes respectively. Weight of 3670 g. Spontaneous delivery intact placenta with 3V cord COMPLICATIONS: Unknown. DISPOSITION: The patient in LDRP and to [facility], [facility]. PROCEDURE DETAILS: Shannan Michel is a 34-year-old, G4, now P 3-0-1-3, at 39-0/7 weeks' gestation who presented to L [facility] D on the morning of 09/12/2019 stating her water broke at 0400. The fluid was clear. The patient at 4 cm dilation, 70% effacement, and negative 2 station upon arrival. She is GBS positive and therefore underwent IV ampicillin prophylaxis. At 0945, IV Pitocin was started to augment labor. The patient progressed over 4 hours to 10 cm dilation, 100% effacement, and positive 2 station, and felt the urge to push. She did have an epidural. Upon my arrival, the patient was placed in a modified dorsal lithotomy position, was prepped and draped in the usual aseptic manner. With pushing efforts, was able to push to deliver infant's head atraumatically spontaneously, followed by anterior shoulder, posterior shoulder, and remaining body without difficulty. Nuchal cord x1 was reduced manually. The infant's oropharynx and nares were bulb suctioned. The was handed off to the mother and attending nursing staff at her side. After delay, cord was clamped x2 and cut. Cord arterial, cord venous, cord blood sampling was obtained. Light suprapubic pressure was applied while the placenta was delivered spontaneously intact. Vigorous fundal uterine massage was then applied while 30 units of Pitocin was delivered in 500 mL of IV fluid. Upon inspection of cervix, vaginal sidewall, and perineum, no lacerations were visible. Hemostasis was thereafter evident. Uterus remained firm. Hemostasis remained evident. Sponge, instrument, and needle counts were correct. The patient will remain in LDR1. in nursery. SOLBSAR / MODL /[id number] MTDD
[2019-09-12] MEDS: Ibuprofen 800 MG Tab PO PRN (18:42)
--- NOTE | 2019-09-13 07:06 | PCM48HPAN ---
Post Anesthesia Note - EVALUATION WITHIN 48HRS OF ANESTHETIC Vital Signs in Normal Range: Yes Patient Participated in Evaluation: Yes Respiratory Function Stable: Yes Airway Patent: Yes Cardiovascular Function Stable: Yes Hydration Status Stable: Yes Pain Control Satisfactory: Yes Nausea and Vomiting Control Satisfactory: Yes Mental Status Recovered: Yes Vital Signs: Last Vital Signs Temp 36.1 C 09/13/19 04:27 Pulse 75 09/13/19 04:27 Resp 16 09/13/19 04:27 BP 113/60 09/13/19 04:27 Pulse Ox 97 09/13/19 04:27
--- NOTE | 2019-09-13 07:06 | PCM.POSTAN ---
POST ANESTHESIA ASSESSMENT - MENTAL STATUS Mental Status: Alert - VITAL SIGNS Vital Signs: Last Vital Signs Temp 36.1 C 09/13/19 04:27 Pulse 75 09/13/19 04:27 Resp 16 09/13/19 04:27 BP 113/60 09/13/19 04:27 Pulse Ox 97 09/13/19 04:27 - RESPIRATORY Respiratory Status: Respiratory Rate WNL - CARDIOVASCULAR CV Status: Pulse Rate WNL - GASTROINTESTINAL GI Status: No Symptoms - POST OP HYDRATION Hydration Status: Adequate & Stable
--- NOTE | 2019-09-13 08:07 | PCM.PNPP ---
<Claudia Duarte E - Last Filed: 09/13/19 08:02> - General Info Date of Service: 09/13/19 Admission Dx/Problem (Free Text): 34 yo G4 now P3013 PPD1 s/p uncomplicated at 39 wks. PNC complicated by close conception. Intrapartum course complicated by GBS positivity. Subjective Update: Shannan is doing well this AM. States she was able to get some rest last night. She has some abdominal cramping with and otherwise is managed well. Functional Status: Reports: Pain Controlled, Tolerating Diet, Ambulating, Urinating. Denies: New Symptoms - Review of Systems General: Denies: Fever, Weakness, Chills HEENT: Denies: Headaches Pulmonary: Denies: Shortness of Breath Cardiovascular: Denies: Chest Pain Gastrointestinal: Reports: Abdominal Pain (with uterine palpation). Denies: Constipation, Diarrhea, Nausea, Vomiting Genitourinary: Denies: Dysuria Musculoskeletal: Reports: Back Pain (lower back) Skin: Reports: No Symptoms Neurological: Denies: Confusion, Dizziness, Headache, Numbness - General Info Date of Service: 09/13/19 - Patient Data Vital Signs - Most Recent: Last Vital Signs Temp 36.1 C 09/13/19 07:44 Pulse 103 H 09/13/19 07:44 Resp 14 09/13/19 07:44 BP 137/80 09/13/19 07:44 Pulse Ox 97 09/13/19 07:44 Weight - Most Recent: 112.945 kg Lab Results - Last 24 Hours: Laboratory Results - last 24 hr 09/12/19 09/13/19 Range/Units 14:08 05:23 Hgb 10.9 L (12.0-16.0) g/dL Hct 33.5 L (36.0-46.0) % Cord ABG pH 7.268 (7.18-7.38) Cord ABG Base Excess -1 H (-10--2) Cord VBG pH 7.405 (7.25-7.45) Cord VBG Base Excess -2 (-10--2) Med Orders - Current: Current Medications Acetaminophen (Tylenol Extra Strength) 500 mg PO Q4H PRN PRN Reason: Pain Acetaminophen (Tylenol Extra Strength) 1,000 mg PO Q4H PRN PRN Reason: Pain Al Hydroxide/Mg Hydroxide (Mag-Al Plus) 30 ml PO Q8H PRN PRN Reason: Heartburn Benzocaine/Menthol (Dermoplast Pain Relief 20%-0.5% [place]) 78 gm TOP ASDIRECTED PRN PRN Reason: Perineal Comfort Measure Last Admin: 09/13/19 05:59 Dose: 1 bottle Bisacodyl (Dulcolax) 10 mg RECTAL ONETIME PRN PRN Reason: Constipation Carboprost Tromethamine (Hemabate Ds) 250 mcg IM ASDIRECTED PRN PRN Reason: Post Hemorrhage Docusate Sodium (Colace) 100 mg PO BID PRN PRN Reason: Constipation Emollient Ointment (Lansinoh Hpa) 0 gm TOP ASDIRECTED PRN PRN Reason: Sore Nipples Last Admin: 09/13/19 06:00 Dose: 1 tube Lactated Ringer's (Ringers, Lactated) 1,000 mls @ 150 mls/hr IV ASDIRECTED DONNA Last Admin: 09/12/19 12:24 Dose: 1,000 mls/hr Tranexamic Acid 1,000 mg/ (Sodium Chloride) 110 mls @ 660 mls/hr IV ONETIME PRN PRN Reason: Bleeding Oxytocin 30 unit/ Sodium (Chloride) 503 mls @ 503 mls/hr IV TITRATE DONNA Oxytocin 30 unit/ Sodium (Chloride) 503 mls @ 2.01 mls/hr IV TITRATE DONNA; Protocol Last Admin: 09/12/19 09:47 Dose: 2 munits/min, 2.01 mls/hr Ibuprofen (Motrin) 400 mg PO Q4H PRN PRN Reason: Pain Ibuprofen (Motrin) 800 mg PO Q6H PRN PRN Reason: Pain Last Admin: 09/12/19 18:42 Dose: 800 mg Methylergonovine Maleate (Methergine) 0.2 mg IM ASDIRECTED PRN PRN Reason: Post Hemorrhage Nalbuphine HCl (Nubain) 10 mg IVPUSH Q1H PRN PRN Reason: Pain (severe 7-10) Ondansetron HCl (Zofran) 4 mg IVPUSH Q6H PRN PRN Reason: Nausea/Vomiting Oxycodone HCl (Oxycodone) 5 mg PO Q2H PRN PRN Reason: Pain Sodium Chloride (Saline Flush) 10 ml FLUSH ASDIRECTED PRN PRN Reason: Keep Vein Open Sodium Chloride (Saline Flush) 2.5 ml FLUSH ASDIRECTED PRN PRN Reason: Keep Vein Open Sodium Chloride (Normal Saline) 10 ml IV ASDIRECTED PRN PRN Reason: IV Use Sterile Water (Sterile Water For Irrigation) 1,000 ml IRR ASDIRECTED PRN PRN Reason: delivery Felisha Sprague (Tucks) 1 pad TOP ASDIRECTED PRN PRN Reason: comfort care Last Admin: 09/13/19 05:58 Dose: 1 pack Discontinued Medications Butorphanol Tartrate (Stadol) 1 mg IVPUSH Q1H PRN PRN Reason: Pain Ampicillin Sodium 2 gm/ Sodium (Chloride) 100 mls @ 200 mls/hr IV ONETIME ONE Stop: 09/12/19 06:35 Last Admin: 09/12/19 06:44 Dose: 200 mls/hr Oxytocin/Sodium Chloride (Oxytocin 30 Unit/500 Ml-Ns) 30 unit in 500 mls @ 500 mls/hr IV TITRATE DONNA Oxytocin/Sodium Chloride (Oxytocin 30 Unit/500 Ml-Ns) 30 unit in 500 mls @ 2 mls/hr IV TITRATE DONNA; Protocol Ampicillin Sodium 1 gm/ Sodium (Chloride) 50 mls @ 100 mls/hr IV Q4H DONNA Ampicillin Sodium 1 gm/ Sodium (Chloride) 50 mls @ 100 mls/hr IV Q4H DONNA Last Admin: 09/12/19 10:49 Dose: 100 mls/hr Oxytocin/Sodium Chloride (Oxytocin 30 Unit/500 Ml-Ns) 30 unit in 500 mls @ 2 mls/hr IV TITRATE DONNA; Protocol Fentanyl/Bupivacaine HCl (Oyiiljdz-Hdtff-Vj 2 Mcg/Ml-0.125%) Confirm Administered Dose 100 mls @ as directed .ROUTE .STK-MED ONE Stop: 09/12/19 11:32 Lidocaine HCl (Xylocaine 1%) 50 ml INJECT ONETIME PRN PRN Reason: Laceration repair Misoprostol (Cytotec) 200 mcg PO ONETIME PRN PRN Reason: Post Hemorrhage Misoprostol (Cytotec) 25 mcg VAG ONETIME PRN PRN Reason: Cervical Ripening Misoprostol (Cytotec) 25 mcg VAG Q4H PRN PRN Reason: Cervical Ripening Misoprostol (Cytotec) 25 mcg VAG ONETIME PRN PRN Reason: Cervical Ripening Misoprostol (Cytotec) 25 mcg VAG Q4H PRN PRN Reason: Cervical Ripening Terbutaline Sulfate (Brethine) 0.25 mg SUBCUT ASDIRECTED PRN PRN Reason: Tacysystole Terbutaline Sulfate (Brethine) 0.25 mg SUBCUT ASDIRECTED PRN PRN Reason: Tacysystole - Interaction Infant Disposition, : [place] in Room with Family Infant Interaction: Holding (Dad holding ) Feeding: Breastfed Infant; Nursed Well, Continues to Breastfeed Support Person: - Recovery Exam Fundal Tone: Firm Fundal Level: At Umbilicus Fundal Placement: Midline Lochia Amount: Small Lochia Color: Rubra/Red Perineum Description: Intact, Minimal Bruising/Swelling Episiotomy/Laceration: None Bladder Status: Voiding Urinary Elimination: Voided - Exam General: Alert, Oriented, Cooperative, No Acute Distress HEENT: Pupils Equal, Pupils Reactive, EOMI, Mucous Membr. Moist/[place] Lungs: Clear to Auscultation, Normal Respiratory Effort Cardiovascular: Regular Rate, Regular Rhythm GI/Abdominal Exam: Soft, No Distention, No Mass, Tender (with uterine palpation) Extremities: Normal Inspection, Normal Range of Motion, No Pedal Edema, Normal Capillary Refill Skin: Warm, Dry, Intact Neurological: No New Focal Deficit Psy/Mental Status: Alert, Normal Affect, Normal Mood - Problem List & Annotations (1) Vaginal delivery SNOMED Code(s): 666799726 Code(s): O80 - ENCOUNTER FOR FULL-TERM UNCOMPLICATED DELIVERY Status: Resolved Current Visit: Yes Onset Date: ~09/12/19 Annotation/Comment:: Pt delivered 09/12/19 - Problem List Review Problem List Initiated/Reviewed/Updated: Yes - Assessment Assessment:: Shannan is a 34 yo G4 now P3013 female s/p uncomplicated at 39+0 wks. PPD1 she is doing well with no complaints, and pain and lochia are appropriate. She is hemodynamically stable, and we will keep an eye on her BPs. Pt is ambulating , urinating, eating and drinking appropriately. - Plan Plan:: Continue routine post- care to include monitoring vital signs and lochia. Treat pain PRN with Tylenol and Motrin as ordered. Encourage hydration, mother- bonding, and ambulation. Pt may continue regular diet as tolerated. Pt will be discharged today. Infant will need to stay in-house for another 24 hrs due to GBS positivity and SROM at home. Pelvic rest for 6 wks F/U with Dr. Hale in clinic in 6 wks Return precautions given. <Rola Hale - Last Filed: 09/13/19 09:20> - Patient Data Vital Signs - Most Recent: Last Vital Signs Temp 36.1 C 09/13/19 07:44 Pulse 103 H 09/13/19 07:44 Resp 14 09/13/19 07:44 BP 137/80 09/13/19 07:44 Pulse Ox 97 09/13/19 07:44 Lab Results - Last 24 Hours: Laboratory Results - last 24 hr 09/12/19 09/13/19 Range/Units 14:08 05:23 Hgb 10.9 L (12.0-16.0) g/dL Hct 33.5 L (36.0-46.0) % Cord ABG pH 7.268 (7.18-7.38) Cord ABG Base Excess -1 H (-10--2) Cord VBG pH 7.405 (7.25-7.45) Cord VBG Base Excess -2 (-10--2) Med Orders - Current: Current Medications Acetaminophen (Tylenol Extra Strength) 500 mg PO Q4H PRN PRN Reason: Pain Acetaminophen (Tylenol Extra Strength) 1,000 mg PO Q4H PRN PRN Reason: Pain Al Hydroxide/Mg Hydroxide (Mag-Al Plus) 30 ml PO Q8H PRN PRN Reason: Heartburn Benzocaine/Menthol (Dermoplast Pain Relief 20%-0.5% [place]) 78 gm TOP ASDIRECTED PRN PRN Reason: Perineal Comfort Measure Last Admin: 09/13/19 05:59 Dose: 1 bottle Bisacodyl (Dulcolax) 10 mg RECTAL ONETIME PRN PRN Reason: Constipation Carboprost Tromethamine (Hemabate Ds) 250 mcg IM ASDIRECTED PRN PRN Reason: Post Hemorrhage Docusate Sodium (Colace) 100 mg PO BID PRN PRN Reason: Constipation Emollient Ointment (Lansinoh Hpa) 0 gm TOP ASDIRECTED PRN PRN Reason: Sore Nipples Last Admin: 09/13/19 06:00 Dose: 1 tube Lactated Ringer's (Ringers, Lactated) 1,000 mls @ 150 mls/hr IV ASDIRECTED DONNA Last Admin: 09/12/19 12:24 Dose: 1,000 mls/hr Tranexamic Acid 1,000 mg/ (Sodium Chloride) 110 mls @ 660 mls/hr IV ONETIME PRN PRN Reason: Bleeding Oxytocin 30 unit/ Sodium (Chloride) 503 mls @ 503 mls/hr IV TITRATE DONNA Oxytocin 30 unit/ Sodium (Chloride) 503 mls @ 2.01 mls/hr IV TITRATE DONNA; Protocol Last Admin: 09/12/19 09:47 Dose: 2 munits/min, 2.01 mls/hr Ibuprofen (Motrin) 400 mg PO Q4H PRN PRN Reason: Pain Ibuprofen (Motrin) 800 mg PO Q6H PRN PRN Reason: Pain Last Admin: 09/13/19 08:25 Dose: 800 mg Methylergonovine Maleate (Methergine) 0.2 mg IM ASDIRECTED PRN PRN Reason: Post Hemorrhage Nalbuphine HCl (Nubain) 10 mg IVPUSH Q1H PRN PRN Reason: Pain (severe 7-10) Ondansetron HCl (Zofran) 4 mg IVPUSH Q6H PRN PRN Reason: Nausea/Vomiting Oxycodone HCl (Oxycodone) 5 mg PO Q2H PRN PRN Reason: Pain Sodium Chloride (Saline Flush) 10 ml FLUSH ASDIRECTED PRN PRN Reason: Keep Vein Open Sodium Chloride (Saline Flush) 2.5 ml FLUSH ASDIRECTED PRN PRN Reason: Keep Vein Open Sodium Chloride (Normal Saline) 10 ml IV ASDIRECTED PRN PRN Reason: IV Use Sterile Water (Sterile Water For Irrigation) 1,000 ml IRR ASDIRECTED PRN PRN Reason: delivery Witch Darcie (Tucks) 1 pad TOP ASDIRECTED PRN PRN Reason: comfort care Last Admin: 09/13/19 05:58 Dose: 1 pack Discontinued Medications Butorphanol Tartrate (Stadol) 1 mg IVPUSH Q1H PRN PRN Reason: Pain Ampicillin Sodium 2 gm/ Sodium (Chloride) 100 mls @ 200 mls/hr IV ONETIME ONE Stop: 09/12/19 06:35 Last Admin: 09/12/19 06:44 Dose: 200 mls/hr Oxytocin/Sodium Chloride (Oxytocin 30 Unit/500 Ml-Ns) 30 unit in 500 mls @ 500 mls/hr IV TITRATE DONNA Oxytocin/Sodium Chloride (Oxytocin 30 Unit/500 Ml-Ns) 30 unit in 500 mls @ 2 mls/hr IV TITRATE DONNA; Protocol Ampicillin Sodium 1 gm/ Sodium (Chloride) 50 mls @ 100 mls/hr IV Q4H DONNA Ampicillin Sodium 1 gm/ Sodium (Chloride) 50 mls @ 100 mls/hr IV Q4H DONNA Last Admin: 09/12/19 10:49 Dose: 100 mls/hr Oxytocin/Sodium Chloride (Oxytocin 30 Unit/500 Ml-Ns) 30 unit in 500 mls @ 2 mls/hr IV TITRATE DONNA; Protocol Fentanyl/Bupivacaine HCl (Lfgzibbq-Wnswo-Dd 2 Mcg/Ml-0.125%) Confirm Administered Dose 100 mls @ as directed .ROUTE .STK-MED ONE Stop: 09/12/19 11:32 Lidocaine HCl (Xylocaine 1%) 50 ml INJECT ONETIME PRN PRN Reason: Laceration repair Misoprostol (Cytotec) 200 mcg PO ONETIME PRN PRN Reason: Post Hemorrhage Misoprostol (Cytotec) 25 mcg VAG ONETIME PRN PRN Reason: Cervical Ripening Misoprostol (Cytotec) 25 mcg VAG Q4H PRN PRN Reason: Cervical Ripening Misoprostol (Cytotec) 25 mcg VAG ONETIME PRN PRN Reason: Cervical Ripening Misoprostol (Cytotec) 25 mcg VAG Q4H PRN PRN Reason: Cervical Ripening Terbutaline Sulfate (Brethine) 0.25 mg SUBCUT ASDIRECTED PRN PRN Reason: Tacysystole Terbutaline Sulfate (Brethine) 0.25 mg SUBCUT ASDIRECTED PRN PRN Reason: Tacysystole - My Orders Last 24 Hours: My Active Orders 09/12/19 09:10 Bedrest Bathroom Privileges [RC] ASDIRECTED Communication Order [RC] ASDIRECTED Communication Order [RC] ASDIRECTED Communication Order [RC] ASDIRECTED Notify Provider [RC] PRN Notify Provider [RC] PRN Notify Provider [RC] STAT Oxygen Therapy [RC] ASDIRECTED Vaginal Exam [RC] PRN Vital Signs [RC] PER UNIT ROUTINE 09/12/19 09:15 Medication Administration Instruction [OM.PC] Q3H 09/12/19 14:25 Patient Status [ADT] Routine May Shower [RC] ASDIRECTED Up ad Nina [RC] ASDIRECTED Vital Signs [RC] PER UNIT ROUTINE Acetaminophen [Tylenol Extra Strength] 1,000 mg PO Q4H PRN Acetaminophen [Tylenol Extra Strength] 500 mg PO Q4H PRN Alum Hydrox/Mag Hydrox/Simeth [Mag-Al Plus] 30 ml PO Q8H PRN Benzocaine/Menthol [Dermoplast Pain Relief 20%-0.5% [place]] 78 gm TOP ASDIRECTED PRN Bisacodyl [Dulcolax] 10 mg RECTAL ONETIME PRN Docusate Sodium [Colace] 100 mg PO BID PRN Ibuprofen [Motrin] 400 mg PO Q4H PRN Ibuprofen [Motrin] 800 mg PO Q6H PRN Lanolin [Lansinoh HPA] See Dose Instructions TOP ASDIRECTED PRN Witch Darcie [Tucks] 1 pad TOP ASDIRECTED PRN oxyCODONE 5 mg PO Q2H PRN Assess Lochia [WOMSER] Per Unit Routine Assess Uterine Involution [WOMSER] Per Unit Routine Peripheral IV Discontinue [OM.PC] Routine 09/12/19 14:26 Ice Therapy [OM.PC] Per Unit Routine Perineal Care [OM.PC] Per Unit Routine Sitz Bath [OM.PC] Per Unit Routine 09/12/19 Lunch Regular Diet [DIET] - Plan Plan:: Patient seen and examined-- she will not be discharged today as will continue to be monitored. Continue PP cares.
[2019-09-13] MEDS: Ibuprofen 800 MG Tab PO PRN ×2 (08:25→18:57)
[2019-09-14] MEDS: Ibuprofen 800 MG Tab PO PRN (06:30)
[2019-09-14 07:27] VITALS: BP 117/59; PULSE 65
--- NOTE | 2019-09-14 08:45 | PCM.PNPP ---
<Claudia Duarte - Last Filed: 09/14/19 08:42> - General Info Date of Service: 09/14/19 Admission Dx/Problem (Free Text): 34 yo G4 now P3013 PPD2 s/p uncomplicated at 39 wks. PNC complicated by close conception. Intrapartum course complicated by GBS positivity. Subjective Update: Shannan is doing well this AM. States she was up feeding the little one for most of the evening. She has some abdominal cramping with and otherwise is managed well. - Review of Systems General: Reports: Appetite. Denies: Fever, Weakness, Chills HEENT: Denies: Headaches, Visual Changes Pulmonary: Denies: Shortness of Breath Cardiovascular: Denies: Chest Pain Gastrointestinal: Reports: Abdominal Pain (with and uterine palpation) Genitourinary: Denies: Dysuria Musculoskeletal: Denies: Back Pain Neurological: Denies: Confusion, Dizziness, Headache Psychiatric: Denies: Confusion - General Info Date of Service: 09/14/19 - Patient Data Vital Signs - Most Recent: Last Vital Signs Temp 36.7 C 09/14/19 07:14 Pulse 65 09/14/19 07:14 Resp 17 09/14/19 07:14 BP 117/59 L 09/14/19 07:14 Pulse Ox 98 09/14/19 07:14 Weight - Most Recent: 112.945 kg Lab Results - Last 24 Hours: Laboratory Results - last 24 hr 09/12/19 Range/Units 06:25 RPR Non Reactive (NonRea<1:1) Med Orders - Current: Current Medications Acetaminophen (Tylenol Extra Strength) 500 mg PO Q4H PRN PRN Reason: Pain Acetaminophen (Tylenol Extra Strength) 1,000 mg PO Q4H PRN PRN Reason: Pain Al Hydroxide/Mg Hydroxide (Mag-Al Plus) 30 ml PO Q8H PRN PRN Reason: Heartburn Benzocaine/Menthol (Dermoplast Pain Relief 20%-0.5% [place]) 78 gm TOP ASDIRECTED PRN PRN Reason: Perineal Comfort Measure Last Admin: 09/13/19 05:59 Dose: 1 bottle Bisacodyl (Dulcolax) 10 mg RECTAL ONETIME PRN PRN Reason: Constipation Carboprost Tromethamine (Hemabate Ds) 250 mcg IM ASDIRECTED PRN PRN Reason: Post Hemorrhage Docusate Sodium (Colace) 100 mg PO BID PRN PRN Reason: Constipation Emollient Ointment (Lansinoh Hpa) 0 gm TOP ASDIRECTED PRN PRN Reason: Sore Nipples Last Admin: 09/13/19 06:00 Dose: 1 tube Lactated Ringer's (Ringers, Lactated) 1,000 mls @ 150 mls/hr IV ASDIRECTED DONNA Last Admin: 09/12/19 12:24 Dose: 1,000 mls/hr Tranexamic Acid 1,000 mg/ (Sodium Chloride) 110 mls @ 660 mls/hr IV ONETIME PRN PRN Reason: Bleeding Oxytocin 30 unit/ Sodium (Chloride) 503 mls @ 503 mls/hr IV TITRATE DONNA Oxytocin 30 unit/ Sodium (Chloride) 503 mls @ 2.01 mls/hr IV TITRATE DONNA; Protocol Last Admin: 09/12/19 09:47 Dose: 2 munits/min, 2.01 mls/hr Ibuprofen (Motrin) 400 mg PO Q4H PRN PRN Reason: Pain Ibuprofen (Motrin) 800 mg PO Q6H PRN PRN Reason: Pain Last Admin: 09/14/19 06:30 Dose: 800 mg Methylergonovine Maleate (Methergine) 0.2 mg IM ASDIRECTED PRN PRN Reason: Post Hemorrhage Nalbuphine HCl (Nubain) 10 mg IVPUSH Q1H PRN PRN Reason: Pain (severe 7-10) Ondansetron HCl (Zofran) 4 mg IVPUSH Q6H PRN PRN Reason: Nausea/Vomiting Oxycodone HCl (Oxycodone) 5 mg PO Q2H PRN PRN Reason: Pain Sodium Chloride (Saline Flush) 10 ml FLUSH ASDIRECTED PRN PRN Reason: Keep Vein Open Sodium Chloride (Saline Flush) 2.5 ml FLUSH ASDIRECTED PRN PRN Reason: Keep Vein Open Sodium Chloride (Normal Saline) 10 ml IV ASDIRECTED PRN PRN Reason: IV Use Sterile Water (Sterile Water For Irrigation) 1,000 ml IRR ASDIRECTED PRN PRN Reason: delivery Witch Darcie (Tucks) 1 pad TOP ASDIRECTED PRN PRN Reason: comfort care Last Admin: 09/13/19 05:58 Dose: 1 pack Discontinued Medications Butorphanol Tartrate (Stadol) 1 mg IVPUSH Q1H PRN PRN Reason: Pain Ampicillin Sodium 2 gm/ Sodium (Chloride) 100 mls @ 200 mls/hr IV ONETIME ONE Stop: 09/12/19 06:35 Last Admin: 09/12/19 06:44 Dose: 200 mls/hr Oxytocin/Sodium Chloride (Oxytocin 30 Unit/500 Ml-Ns) 30 unit in 500 mls @ 500 mls/hr IV TITRATE DONNA Oxytocin/Sodium Chloride (Oxytocin 30 Unit/500 Ml-Ns) 30 unit in 500 mls @ 2 mls/hr IV TITRATE DONNA; Protocol Ampicillin Sodium 1 gm/ Sodium (Chloride) 50 mls @ 100 mls/hr IV Q4H DONNA Ampicillin Sodium 1 gm/ Sodium (Chloride) 50 mls @ 100 mls/hr IV Q4H DONNA Last Admin: 09/12/19 10:49 Dose: 100 mls/hr Oxytocin/Sodium Chloride (Oxytocin 30 Unit/500 Ml-Ns) 30 unit in 500 mls @ 2 mls/hr IV TITRATE DONNA; Protocol Fentanyl/Bupivacaine HCl (Pvcxdykr-Hefwf-Ft 2 Mcg/Ml-0.125%) Confirm Administered Dose 100 mls @ as directed .ROUTE .STK-MED ONE Stop: 09/12/19 11:32 Lidocaine HCl (Xylocaine 1%) 50 ml INJECT ONETIME PRN PRN Reason: Laceration repair Misoprostol (Cytotec) 200 mcg PO ONETIME PRN PRN Reason: Post Hemorrhage Misoprostol (Cytotec) 25 mcg VAG ONETIME PRN PRN Reason: Cervical Ripening Misoprostol (Cytotec) 25 mcg VAG Q4H PRN PRN Reason: Cervical Ripening Misoprostol (Cytotec) 25 mcg VAG ONETIME PRN PRN Reason: Cervical Ripening Misoprostol (Cytotec) 25 mcg VAG Q4H PRN PRN Reason: Cervical Ripening Terbutaline Sulfate (Brethine) 0.25 mg SUBCUT ASDIRECTED PRN PRN Reason: Tacysystole Terbutaline Sulfate (Brethine) 0.25 mg SUBCUT ASDIRECTED PRN PRN Reason: Tacysystole - Infant Interaction Disposition, : [place] in Room with Family Interaction: Holding (Dad holding infant) Feeding: Breastfed ; Nursed Well, Continues to Breastfeed Support Person: - Recovery Exam Fundal Tone: Firm Fundal Level: At Umbilicus Fundal Placement: Midline Lochia Amount: Small Lochia Color: Rubra/Red Perineum Description: Intact, Minimal Bruising/Swelling Episiotomy/Laceration: None Bladder Status: Voiding Urinary Elimination: Voided - Exam General: Alert, Oriented HEENT: Pupils Equal, Pupils Reactive, EOMI, Mucous Membr. Moist/[place] Lungs: Clear to Auscultation, Normal Respiratory Effort Cardiovascular: Regular Rate, Regular Rhythm GI/Abdominal Exam: Soft, No Distention, Tender (with deep uterine palpation). No: Rigid Extremities: Normal Inspection, Normal Range of Motion Skin: Warm, Dry, Intact Neurological: No New Focal Deficit Psy/Mental Status: Alert, Normal Affect, Normal Mood - Problem List & Annotations (1) Vaginal delivery SNOMED Code(s): 267606137 Code(s): O80 - ENCOUNTER FOR FULL-TERM UNCOMPLICATED DELIVERY Status: Resolved Current Visit: Yes Onset Date: ~09/12/19 Annotation/Comment:: Pt delivered 09/12/19 - Problem List Review Problem List Initiated/Reviewed/Updated: Yes - Assessment Assessment:: Shannan is a 34 yo G4 now P3013 female s/p uncomplicated at 39+0 wks. PPD2 she is doing well with no complaints, and pain and lochia are appropriate. She is hemodynamically stable. Blood pressures are returning to baseline. Pt is ambulating, urinating, eating and drinking appropriately. - Plan Plan:: Pt will be discharged today as soon as baby is ready to go. Return to care precautions given. Pelvic rest for 6 wks. Follow-up in clinic with Dr. Hale in 6 wks or sooner if needed. <Rola Hale - Last Filed: 09/14/19 09:00> - Patient Data Vital Signs - Most Recent: Last Vital Signs Temp 36.7 C 09/14/19 07:14 Pulse 65 09/14/19 07:14 Resp 17 09/14/19 07:14 BP 117/59 L 09/14/19 07:14 Pulse Ox 98 09/14/19 07:14 Lab Results - Last 24 Hours: Laboratory Results - last 24 hr 09/12/19 Range/Units 06:25 RPR Non Reactive (NonRea<1:1) Med Orders - Current: Current Medications Acetaminophen (Tylenol Extra Strength) 500 mg PO Q4H PRN PRN Reason: Pain Acetaminophen (Tylenol Extra Strength) 1,000 mg PO Q4H PRN PRN Reason: Pain Al Hydroxide/Mg Hydroxide (Mag-Al Plus) 30 ml PO Q8H PRN PRN Reason: Heartburn Benzocaine/Menthol (Dermoplast Pain Relief 20%-0.5% [place]) 78 gm TOP ASDIRECTED PRN PRN Reason: Perineal Comfort Measure Last Admin: 09/13/19 05:59 Dose: 1 bottle Bisacodyl (Dulcolax) 10 mg RECTAL ONETIME PRN PRN Reason: Constipation Carboprost Tromethamine (Hemabate Ds) 250 mcg IM ASDIRECTED PRN PRN Reason: Post Hemorrhage Docusate Sodium (Colace) 100 mg PO BID PRN PRN Reason: Constipation Emollient Ointment (Lansinoh Hpa) 0 gm TOP ASDIRECTED PRN PRN Reason: Sore Nipples Last Admin: 09/13/19 06:00 Dose: 1 tube Lactated Ringer's (Ringers, Lactated) 1,000 mls @ 150 mls/hr IV ASDIRECTED DONNA Last Admin: 09/12/19 12:24 Dose: 1,000 mls/hr Tranexamic Acid 1,000 mg/ (Sodium Chloride) 110 mls @ 660 mls/hr IV ONETIME PRN PRN Reason: Bleeding Oxytocin 30 unit/ Sodium (Chloride) 503 mls @ 503 mls/hr IV TITRATE DONNA Oxytocin 30 unit/ Sodium (Chloride) 503 mls @ 2.01 mls/hr IV TITRATE DONNA; Protocol Last Admin: 09/12/19 09:47 Dose: 2 munits/min, 2.01 mls/hr Ibuprofen (Motrin) 400 mg PO Q4H PRN PRN Reason: Pain Ibuprofen (Motrin) 800 mg PO Q6H PRN PRN Reason: Pain Last Admin: 09/14/19 06:30 Dose: 800 mg Methylergonovine Maleate (Methergine) 0.2 mg IM ASDIRECTED PRN PRN Reason: Post Hemorrhage Nalbuphine HCl (Nubain) 10 mg IVPUSH Q1H PRN PRN Reason: Pain (severe 7-10) Ondansetron HCl (Zofran) 4 mg IVPUSH Q6H PRN PRN Reason: Nausea/Vomiting Oxycodone HCl (Oxycodone) 5 mg PO Q2H PRN PRN Reason: Pain Sodium Chloride (Saline Flush) 10 ml FLUSH ASDIRECTED PRN PRN Reason: Keep Vein Open Sodium Chloride (Saline Flush) 2.5 ml FLUSH ASDIRECTED PRN PRN Reason: Keep Vein Open Sodium Chloride (Normal Saline) 10 ml IV ASDIRECTED PRN PRN Reason: IV Use Sterile Water (Sterile Water For Irrigation) 1,000 ml IRR ASDIRECTED PRN PRN Reason: delivery Witch Darcie (Tucks) 1 pad TOP ASDIRECTED PRN PRN Reason: comfort care Last Admin: 09/13/19 05:58 Dose: 1 pack Discontinued Medications Butorphanol Tartrate (Stadol) 1 mg IVPUSH Q1H PRN PRN Reason: Pain Ampicillin Sodium 2 gm/ Sodium (Chloride) 100 mls @ 200 mls/hr IV ONETIME ONE Stop: 09/12/19 06:35 Last Admin: 09/12/19 06:44 Dose: 200 mls/hr Oxytocin/Sodium Chloride (Oxytocin 30 Unit/500 Ml-Ns) 30 unit in 500 mls @ 500 mls/hr IV TITRATE DONNA Oxytocin/Sodium Chloride (Oxytocin 30 Unit/500 Ml-Ns) 30 unit in 500 mls @ 2 mls/hr IV TITRATE DONNA; Protocol Ampicillin Sodium 1 gm/ Sodium (Chloride) 50 mls @ 100 mls/hr IV Q4H DONNA Ampicillin Sodium 1 gm/ Sodium (Chloride) 50 mls @ 100 mls/hr IV Q4H [facility] Last Admin: 09/12/19 10:49 Dose: 100 mls/hr Oxytocin/Sodium Chloride (Oxytocin 30 Unit/500 Ml-Ns) 30 unit in 500 mls @ 2 mls/hr IV TITRATE DONNA; Protocol Fentanyl/Bupivacaine HCl (Qccmcmwq-Ynfcb-Of 2 Mcg/Ml-0.125%) Confirm Administered Dose 100 mls @ as directed .ROUTE .STK-MED ONE Stop: 09/12/19 11:32 Lidocaine HCl (Xylocaine 1%) 50 ml INJECT ONETIME PRN PRN Reason: Laceration repair Misoprostol (Cytotec) 200 mcg PO ONETIME PRN PRN Reason: Post Hemorrhage Misoprostol (Cytotec) 25 mcg VAG ONETIME PRN PRN Reason: Cervical Ripening Misoprostol (Cytotec) 25 mcg VAG Q4H PRN PRN Reason: Cervical Ripening Misoprostol (Cytotec) 25 mcg VAG ONETIME PRN PRN Reason: Cervical Ripening Misoprostol (Cytotec) 25 mcg VAG Q4H PRN PRN Reason: Cervical Ripening Terbutaline Sulfate (Brethine) 0.25 mg SUBCUT ASDIRECTED PRN PRN Reason: Tacysystole Terbutaline Sulfate (Brethine) 0.25 mg SUBCUT ASDIRECTED PRN PRN Reason: Tacysystole - My Orders Last 24 Hours: My Active Orders 09/14/19 08:43 Ready for Discharge [RC] PER UNIT ROUTINE - Plan Plan:: Patient seen and examined--agree with above
== END 2019-09-14 12:55 | disposition home or self-care (01) | DRG 807 ==
LOC: MW.OBCHECK 05:57 → MW.OB 05:58 → MW.OBCHECK 14:24 → OBSVTOIN 14:25 → MW.OB 17:35
PROVIDERS: ADMIT Obstetrics & Gynecology; ATTEND Obstetrics & Gynecology
PROC: 10E0XZZ Delivery of Products of Conception, External Approach (ICD-10-PCS; principal; 2019-09-12)
DX: O99.824 Streptococcus B carrier state complicating childbirth (principal); Z37.0 Single live birth; O99.214 Obesity complicating childbirth; E66.9 Obesity, unspecified; O99.62 Diseases of the digestive system complicating childbirth; K21.9 Gastro-esophageal reflux disease without esophagitis; O99.52 Diseases of the respiratory system complicating childbirth; J45.909 Unspecified asthma, uncomplicated; O69.81X0 Labor and delivery complicated by cord around neck, without compression, not applicable or unspecified; Z3A.39 39 weeks gestation of pregnancy; Z79.51 Long term (current) use of inhaled steroids; Z79.899 Other long term (current) drug therapy
CPT/HCPCS: 01967; 36415; 51702; 59025; 59409; 82803; 85014; 85018; 85027; 86593; 86850; 86900; 86901; A9270-GY; J0290; J2590; J7030; J7040; J7050; J7120

== ENCOUNTER 2021-06-24 06:58 | Inpatient (IN) | payer BC ==
[2021-06-24] MEDS: Lactated Ringers 1,000 ML IV SCH ×3 (07:35→16:43)
[2021-06-24] MEDS ORDERED: Carboprost Tromethamine 250 MCG/1 ML Amp IM PRN (07:58)
[2021-06-24] MEDS ORDERED: Sodium Chloride 0.9% 10 ML Syringe FLUSH PRN (07:58)
[2021-06-24] MEDS ORDERED: Water For Irrigation,Sterile 1,000 ML Container IRR PRN (07:58)
[2021-06-24] MEDS ORDERED: Sodium Chloride 0.9% 10 ML SDV IV PRN (07:58)
[2021-06-24] MEDS ORDERED: Butorphanol 1 MG/ML SDV IVPUSH PRN (07:58)
[2021-06-24] MEDS ORDERED: Methylergonovine 0.2 MG/1 ML Amp IM PRN (07:58)
[2021-06-24] MEDS ORDERED: Sodium Chloride 0.9% 2.5 ML Syringe FLUSH PRN (07:58)
[2021-06-24] MEDS ORDERED: Tranexamic Acid 1,000 MG in Sodium Chloride 0.9% 100 ML IV PRN (07:58)
[2021-06-24] MEDS ORDERED: Misoprostol 25 MCG (1/4 of 100 MCG) Tab VAG PRN ×2 (07:58)
[2021-06-24] MEDS ORDERED: Lidocaine 1% 50 ML MDV INJECT PRN (07:58)
[2021-06-24] MEDS ORDERED: Misoprostol 200 MCG Tab PO PRN (07:58)
[2021-06-24] MEDS ORDERED: Ondansetron 4 MG/2 ML SDV IVPUSH PRN (07:58)
[2021-06-24] MEDS ORDERED: Terbutaline 1 MG/ML SDV SUBCUT PRN (07:58)
[2021-06-24] MEDS ORDERED: Ampicillin 2 GM in Sodium Chloride 0.9% 100 ML IV SCH (08:00)
[2021-06-24] MEDS ORDERED: Oxytocin/0.9 % Sodium Chloride 30 UNIT/500 ML BAG IV SCH ×2 (08:00→14:15)
[2021-06-24] MEDS: Ampicillin 1 GM in Sodium Chloride 0.9% 50 ML IV SCH ×2 (12:30→16:43)
[2021-06-24] MEDS ORDERED: Ropivacaine HCl/PF 200 ML ONE (16:14)
--- NOTE | 2021-06-24 16:40 | PCM.PREANE ---
Preanesthetic Assessment - Anesthesia/Transfusion/Family Hx Anesthesia History: Prior Anesthesia Without Reaction Family History of Anesthesia Reaction: No Transfusion History: No Prior Transfusion(s) Intubation History: Unknown - Review of Systems General: No Symptoms Pulmonary: No Symptoms Cardiovascular: No Symptoms Gastrointestinal: No Symptoms Neurological: No Symptoms Other: Reports: None - Physical Assessment Height: 5 ft 6.5 in Weight: 236 lb ASA Class: 2 Mental Status: Alert & Oriented x3 Airway Class: Mallampati = 3 Dentition: Reports: Normal Dentition ROM/Head Extension: Full Lungs: Clear to Auscultation, Normal Respiratory Effort Cardiovascular: Regular Rate, Regular Rhythm - Lab Values: Laboratory Last Values WBC 8.60 K/uL (4.0-11.0) 06/24/21 07:30 RBC 3.88 M/uL (4.30-5.90) L 06/24/21 07:30 Hgb 11.5 g/dL (12.0-16.0) L 06/24/21 07:30 Hct 34.1 % (36.0-46.0) L 06/24/21 07:30 MCV 87.9 fL (80.0-98.0) 06/24/21 07:30 MCH 29.6 pg (27.0-32.0) 06/24/21 07:30 MCHC 33.7 g/dL (31.0-37.0) 06/24/21 07:30 RDW Std Deviation 41.6 fl (28.0-62.0) 06/24/21 07:30 RDW Coeff of Jay 13 % (11.0-15.0) 06/24/21 07:30 Plt Count 264 K/uL (150-400) 06/24/21 07:30 MPV 12.30 fL (7.40-12.00) H 06/24/21 07:30 Nucleated RBC % 0.0 /100WBC 06/24/21 07:30 Nucleated RBCs # 0 K/uL 06/24/21 07:30 Blood Type B POSITIVE 06/24/21 07:30 Antibody Screen NEGATIVE 06/24/21 07:30 - Allergies Allergies/Adverse Reactions: Allergies Allergy/AdvReac Type Severity Reaction Status Date / Time No Known Allergies Allergy Verified 06/24/21 07:57 - Blood Blood Available: Yes Product(s) Available: PRBC - Anesthesia Plan Pre-Op Medication Ordered: None - Acknowledgements Anesthesia Type Planned: Epidural Pt an Appropriate Candidate for the Planned Anesthesia: Yes Alternatives and Risks of Anesthesia Discussed w Pt/Guardian: Yes Pt/Guardian Understands and Agrees with Anesthesia Plan: Yes PreAnesthesia Questionnaire HEENT History: Reports: None Cardiovascular History: Reports: None Respiratory History: Reports: Asthma Gastrointestinal History: Reports: GERD Genitourinary History: Reports: None COMMUNITY SUPPORT SPECIALIST History: Reports: , Spontaneous Musculoskeletal History: Reports: None Neurological History: Reports: Migraines Psychiatric History: Reports: None Endocrine/Metabolic History: Reports: Obesity/BMI 30+ Hematologic History: Reports: None Immunologic History: Reports: None Oncologic (Cancer) History: Reports: None Dermatologic History: Reports: None - Infectious Disease History Infectious Disease History: Reports: Chicken Pox - Past Surgical History Head Surgeries/Procedures: Reports: None HEENT Surgical History: Reports: Oral Surgery Other HEENT Surgeries/Procedures: [place] teeth extraction. Cardiovascular Surgical History: Reports: None Respiratory Surgical History: Reports: None GI Surgical History: Reports: None Female Surgical History: Reports: None Endocrine Surgical History: Reports: None Neurological Surgical History: Reports: None Musculoskeletal Surgical History: Reports: Arthroscopic Knee, Other (See Below) Other Musculoskeletal Surgeries/Procedures:: Right wrist bone graft. Oncologic Surgical History: Reports: None Dermatological Surgical History: Reports: None - SUBSTANCE USE Tobacco Use Status *Q: Never Tobacco User Tobacco Use Within Last Twelve Months: No Second Hand Smoke Exposure: No Recreational Drug Use History: No - HOME MEDS Home Medications: Home Meds Albuterol [Ventolin HFA] 90 mcg INH ASDIRECTED PRN 06/18/17 [History] Pnv No.95/Ferrous Fum/Folic AC [ Multivitamin Tablet] 1 each PO DAILY 06/18/17 [History] - CURRENT (IN HOUSE) MEDS Current Meds: Current Medications Butorphanol Tartrate (Butorphanol 1 Mg/Ml Sdv) 1 mg IVPUSH Q1H PRN PRN Reason: Pain (severe 7-10) Carboprost Tromethamine (Carboprost Tromethamine 250 Mcg/1 Ml Amp) 250 mcg IM ASDIRECTED PRN PRN Reason: Post Hemorrhage Lactated Ringer's (Ringers, Lactated) 1,000 mls @ 150 mls/hr IV ASDIRECTED DONNA Last Admin: 08/18/21 07:35 Dose: 150 mls/hr Documented by: Oxytocin/Sodium Chloride (Oxytocin 30 Unit/500 Ml-Ns) 30 unit in 500 mls @ 500 mls/hr IV TITRATE DONNA Tranexamic Acid 1,000 mg/ (Sodium Chloride) 110 mls @ 660 mls/hr IV ONETIME PRN PRN Reason: Bleeding Ampicillin Sodium 1 gm/ Sodium (Chloride) 50 mls @ 100 mls/hr IV Q4H DONNA Last Admin: 06/24/21 12:30 Dose: 100 mls/hr Documented by: Oxytocin/Sodium Chloride (Oxytocin 30 Unit/500 Ml-Ns) 30 unit in 500 mls @ 2 mls/hr IV TITRATE DONNA; Protocol Last Titration: 06/24/21 15:10 Dose: 4 munits/min, 4 mls/hr Documented by: Lidocaine HCl (Lidocaine 1% 50 Ml Mdv) 50 ml INJECT ONETIME PRN PRN Reason: Laceration repair Methylergonovine Maleate (Methylergonovine 0.2 Mg/1 Ml Amp) 0.2 mg IM ASDIRECTED PRN PRN Reason: Post Hemorrhage Misoprostol (Misoprostol 25 Mcg (1/4 Of 100 Mcg) Tab) 25 mcg VAG ONETIME PRN PRN Reason: Cervical Ripening Last Admin: 06/24/21 08:32 Dose: 25 mcg Documented by: Misoprostol (Misoprostol 25 Mcg (1/4 Of 100 Mcg) Tab) 25 mcg VAG Q6H PRN PRN Reason: Cervical Ripening Misoprostol (Misoprostol 200 Mcg Tab) 200 mcg PO ONETIME PRN PRN Reason: Post Hemorrhage Ondansetron HCl (Ondansetron 4 Mg/2 Ml Sdv) 4 mg IVPUSH Q4H PRN PRN Reason: Nausea/Vomiting Sodium Chloride (Sodium Chloride 0.9% 10 Ml Syringe) 10 ml FLUSH ASDIRECTED PRN PRN Reason: Keep Vein Open Sodium Chloride (Sodium Chloride 0.9% 2.5 Ml Syringe) 2.5 ml FLUSH ASDIRECTED PRN PRN Reason: Keep Vein Open Sodium Chloride (Sodium Chloride 0.9% 10 Ml Sdv) 10 ml IV ASDIRECTED PRN PRN Reason: IV Use Sterile Water (Water For Irrigation,Sterile 1,000 Ml Container) 1,000 ml IRR ASDIRECTED PRN PRN Reason: delivery Terbutaline Sulfate (Terbutaline 1 Mg/Ml Sdv) 0.25 mg SUBCUT ASDIRECTED PRN PRN Reason: Tacysystole Discontinued Medications Ampicillin Sodium 2 gm/ Sodium (Chloride) 100 mls @ 200 mls/hr IV .ONCE DONNA Last Admin: 06/24/21 08:27 Dose: 200 mls/hr Documented by: Ropivacaine (Naropin 0.2%) Confirm Administered Dose 200 mls @ as directed .ROUTE .STK-MED ONE Stop: 06/24/21 16:15 - Pre-Procedure Checklist Attending Provider Aware: Yes Chart Reviewed: Yes Consent Signed: Yes Labs Reviewed: Yes VS/FHR Reviewed: Yes Patient Identification Confirmation Method: Reports: Verbal Patient Pt an Appropriate Candidate for the Planned Anesthesia: Yes Alternatives and Risks of Anesthesia Discussed w Pt/Guardian: Yes - Procedure Procedure Start Date: 06/24/21 Procedure Start Time: 16:[address]: Reports: Blood Pressure, Heart Rate, SPO2 Functional IV: Yes Safety Measures: Reports: Patient Identified, Procedure Verified, Site Verified, Procedure Time Out Patient Position: Reports: Sitting Prep: Reports: Betadine x3, Sterile Drape Local Anesthetic: Reports: Intradermal Wheal w Lidocaine 1% Regional Placement Level: Reports: L3-4 Needle: Reports: 17 g Touhy Approach: Reports: Midline Technique: Reports: BRAY[place] Plastic Syringe Parasthesia: Reports: None Fluid Obtained: Reports: None Test Dose Time: 16:25 Test Dose Medication: Reports: Lidocaine 1.5% w Epinephrine 1:200,000 Test Dose Response: Reports: Negative Loading Dose Time: 16:25 Loading Dose Medication: bupivicaine 0.25% 10 cc Loading Dose Patient Position: sitting Continuous Infusion Start Time: 16:30 Continuous Infusion Medication: ropivicaine 0.2% Continuous Infusion Rate: 16 Patient Position Post Placement: Reports: Supline/YOAV VS and FHR Monitored in Unit Post Placement: Yes Procedure End Date: 06/24/21 Procedure End Time: 17:21
--- NOTE | 2021-06-24 17:33 | PCM.DEL ---
L & D Note - General Info Date of Service: 06/24/21 Mother's Due Date: 06/30/21 - Delivery Note Labor: Spontaneous, Augmented by Oxytocin Cervical Ripening Method: Misoprostil Delivery Outcome: Livebirth Delivery Method: Spontaneous Vaginal Delivery-Single Infant Delivery Mode: Spontaneous Presentation: Left Occiput Anterior (NHUNG) Nuchal Cord: Present (nuchal x3) Anesthesia Type: Epidural Amniotic Fluid Description: Clear Episiotomy Type: None Laceration: None Placenta: Intact, Spontaneous Cord: 3 Vessels Estimated Blood Loss: 200 Resuscitation Needed: Yes : Suctioned, Bulb Syringe, Cathether, Stimulated, Warmed, [place] Used, Warmer Used Provider: Debbi Owens Score 1 min: 6 Score 5 min: 9 Second Stage Interventions: Reports: Second Nurse Assessed Progress of Descent, Second Nurse Reviewed Contraction Pattern, Second Nurse Reviewed Heart Tones, Encouragement Given, Pushing Effectively, Pushing, Pulls Own Legs Back, P ushing, Stirrups/Leg Supports Delivery Comments (Free Text/Narrative):: Live male, weight 3570g , apgars 6 and 9, at 1712 - General Info Date of Service: 06/24/21 - Patient Data Weight - Most Recent: 236 lb Lab Results Last 24 Hours: Laboratory Results - last 24 hr 06/24/21 06/24/21 Range/Units 07:30 07:30 WBC 8.60 (4.0-11.0) K/uL RBC 3.88 L (4.30-5.90) M/uL Hgb 11.5 L (12.0-16.0) g/dL Hct 34.1 L (36.0-46.0) % MCV 87.9 (80.0-98.0) fL MCH 29.6 (27.0-32.0) pg MCHC 33.7 (31.0-37.0) g/dL RDW Std Deviation 41.6 (28.0-62.0) fl RDW Coeff of Jay 13 (11.0-15.0) % Plt Count 264 (150-400) K/uL MPV 12.30 H (7.40-12.00) fL Nucleated RBC % 0.0 /100WBC Nucleated RBCs # 0 K/uL Blood Type B POSITIVE Antibody Screen NEGATIVE Med Orders - Current: Current Medications Butorphanol Tartrate (Butorphanol 1 Mg/Ml Sdv) 1 mg IVPUSH Q1H PRN PRN Reason: Pain (severe 7-10) Carboprost Tromethamine (Carboprost Tromethamine 250 Mcg/1 Ml Amp) 250 mcg IM ASDIRECTED PRN PRN Reason: Post Hemorrhage Lactated Ringer's (Ringers, Lactated) 1,000 mls @ 150 mls/hr IV ASDIRECTED DONNA Last Admin: 06/24/21 16:43 Dose: 150 mls/hr Documented by: Oxytocin/Sodium Chloride (Oxytocin 30 Unit/500 Ml-Ns) 30 unit in 500 mls @ 500 mls/hr IV TITRATE DONNA Tranexamic Acid 1,000 mg/ (Sodium Chloride) 110 mls @ 660 mls/hr IV ONETIME PRN PRN Reason: Bleeding Ampicillin Sodium 1 gm/ Sodium (Chloride) 50 mls @ 100 mls/hr IV Q4H DONNA Last Admin: 06/24/21 16:43 Dose: 100 mls/hr Documented by: Oxytocin/Sodium Chloride (Oxytocin 30 Unit/500 Ml-Ns) 30 unit in 500 mls @ 2 mls/hr IV TITRATE DONNA; Protocol Last Titration: 06/24/21 15:10 Dose: 4 munits/min, 4 mls/hr Documented by: Lidocaine HCl (Lidocaine 1% 50 Ml Mdv) 50 ml INJECT ONETIME PRN PRN Reason: Laceration repair Methylergonovine Maleate (Methylergonovine 0.2 Mg/1 Ml Amp) 0.2 mg IM ASDIRECTED PRN PRN Reason: Post Hemorrhage Misoprostol (Misoprostol 25 Mcg (1/4 Of 100 Mcg) Tab) 25 mcg VAG ONETIME PRN PRN Reason: Cervical Ripening Last Admin: 06/24/21 08:32 Dose: 25 mcg Documented by: Misoprostol (Misoprostol 25 Mcg (1/4 Of 100 Mcg) Tab) 25 mcg VAG Q6H PRN PRN Reason: Cervical Ripening Misoprostol (Misoprostol 200 Mcg Tab) 200 mcg PO ONETIME PRN PRN Reason: Post Hemorrhage Ondansetron HCl (Ondansetron 4 Mg/2 Ml Sdv) 4 mg IVPUSH Q4H PRN PRN Reason: Nausea/Vomiting Sodium Chloride (Sodium Chloride 0.9% 10 Ml Syringe) 10 ml FLUSH ASDIRECTED PRN PRN Reason: Keep Vein Open Sodium Chloride (Sodium Chloride 0.9% 2.5 Ml Syringe) 2.5 ml FLUSH ASDIRECTED PRN PRN Reason: Keep Vein Open Sodium Chloride (Sodium Chloride 0.9% 10 Ml Sdv) 10 ml IV ASDIRECTED PRN PRN Reason: IV Use Sterile Water (Water For Irrigation,Sterile 1,000 Ml Container) 1,000 ml IRR ASDIRECTED PRN PRN Reason: delivery Terbutaline Sulfate (Terbutaline 1 Mg/Ml Sdv) 0.25 mg SUBCUT ASDIRECTED PRN PRN Reason: Tacysystole Discontinued Medications Ampicillin Sodium 2 gm/ Sodium (Chloride) 100 mls @ 200 mls/hr IV .ONCE DONNA Last Admin: 06/24/21 08:27 Dose: 200 mls/hr Documented by: Ropivacaine (Naropin 0.2%) Confirm Administered Dose 200 mls @ as directed .ROUTE .STK-MED ONE Stop: 06/24/21 16:15 - Problem List Review Problem List Initiated/Reviewed/Updated: Yes - Assessment Assessment:: Pt is a 36 yo G5 now P4 female s/p PPD#0. - Plan Plan:: Routine cares GBS positive received 3 doses of antibiotics Rubella immune, Rh+ PO pain medications ordered PRN Regular diet at tolerated Encourage ambulation and fluid intake when able nursing assistance PRN Dispo: stable, admit to , anticipate discharge 24-48 hours post delivery pending pt and baby condition
[2021-06-24] MEDS ORDERED: Lanolin 100% Cream 7 GM Tube TOP PRN (17:37)
[2021-06-24] MEDS ORDERED: Witch Hazel Medicated Pads 40/Jar TOP PRN (17:37)
[2021-06-24] MEDS ORDERED: Acetaminophen 500 MG Tab PO PRN ×2 (17:37)
[2021-06-24] MEDS ORDERED: Docusate Sodium 100 MG Cap PO PRN (17:37)
[2021-06-24] MEDS ORDERED: Ibuprofen 400 MG Tab PO PRN (17:37)
[2021-06-24] MEDS ORDERED: Benzocaine/Menthol 20%-0.5% Spray 78 GM Cannister TOP PRN (17:37)
[2021-06-24] MEDS ORDERED: Bisacodyl 10 MG Supp RECTAL PRN (17:37)
[2021-06-24] MEDS ORDERED: oxyCODONE 5 MG Tab PO PRN (17:37)
--- NOTE | 2021-06-25 07:42 | PCM.PNPP ---
- General Info Date of Service: 06/25/21 Functional Status: Reports: Pain Controlled, Tolerating Diet, Ambulating, Urinating - Review of Systems General: Reports: Fatigue. Denies: Fever, Weakness Pulmonary: Denies: Shortness of Breath Cardiovascular: Denies: Chest Pain, Palpitations, Lightheadedness Gastrointestinal: Denies: Abdominal Pain, Nausea, Vomiting Genitourinary: Denies: Flank Pain Musculoskeletal: Reports: No Symptoms Skin: Reports: No Symptoms Neurological: Reports: No Symptoms Psychiatric: Reports: No Symptoms - General Info Date of Service: 06/25/21 - Patient Data Vital Signs - Most Recent: Last Vital Signs Temp 36.5 C 06/25/21 04:00 Pulse 72 06/25/21 04:00 Resp 18 06/25/21 04:00 BP 118/77 06/25/21 04:00 Pulse Ox 97 06/25/21 04:00 Weight - Most Recent: 107.048 kg Lab Results - Last 24 Hours: Laboratory Results - last 24 hr 06/24/21 06/24/21 06/25/21 Range/Units 07:30 07:30 04:50 WBC 8.60 (4.0-11.0) K/uL RBC 3.88 L (4.30-5.90) M/uL Hgb 11.5 L 10.7 L (12.0-16.0) g/dL Hct 34.1 L 31.7 L (36.0-46.0) % MCV 87.9 (80.0-98.0) fL MCH 29.6 (27.0-32.0) pg MCHC 33.7 (31.0-37.0) g/dL RDW Std Deviation 41.6 (28.0-62.0) fl RDW Coeff of Jay 13 (11.0-15.0) % Plt Count 264 (150-400) K/uL MPV 12.30 H (7.40-12.00) fL Nucleated RBC % 0.0 /100WBC Nucleated RBCs # 0 K/uL Blood Type B POSITIVE Antibody Screen NEGATIVE Med Orders - Current: Current Medications Acetaminophen (Acetaminophen 500 Mg Tab) 500 mg PO Q4H PRN PRN Reason: Pain (mild 1-3) Acetaminophen (Acetaminophen 500 Mg Tab) 1,000 mg PO Q4H PRN PRN Reason: Pain (mild 1-3) Last Admin: 06/25/21 04:18 Dose: 1,000 mg Documented by: Benzocaine/Menthol (Benzocaine/Menthol 20%-0.5% [place] 78 Gm Cannister) 78 gm TOP ASDIRECTED PRN PRN Reason: Perineal Comfort Measure Last Admin: 06/24/21 21:19 Dose: 1 canister Documented by: Bisacodyl (Bisacodyl 10 Mg Supp) 10 mg RECTAL ONETIME PRN PRN Reason: Constipation Carboprost Tromethamine (Carboprost Tromethamine 250 Mcg/1 Ml Amp) 250 mcg IM ASDIRECTED PRN PRN Reason: Post Hemorrhage Docusate Sodium (Docusate Sodium 100 Mg Cap) 100 mg PO Q12H PRN PRN Reason: Constipation Emollient Ointment (Lanolin 100% Cream 7 Gm Tube) 0 gm TOP ASDIRECTED PRN PRN Reason: Sore Nipples Last Admin: 06/24/21 21:19 Dose: 1 tube Documented by: Oxytocin/Sodium Chloride (Oxytocin 30 Unit/500 Ml-Ns) 30 unit in 500 mls @ 500 mls/hr IV TITRATE DONNA Tranexamic Acid 1,000 mg/ (Sodium Chloride) 110 mls @ 660 mls/hr IV ONETIME PRN PRN Reason: Bleeding Oxytocin/Sodium Chloride (Oxytocin 30 Unit/500 Ml-Ns) 30 unit in 500 mls @ 2 mls/hr IV TITRATE DONNA; Protocol Last Titration: 06/24/21 17:12 Dose: 500 munits/min, 500 mls/hr Documented by: Ibuprofen (Ibuprofen 400 Mg Tab) 400 mg PO Q4H PRN PRN Reason: Pain (mild 1-3) Ibuprofen (Ibuprofen 800 Mg Tab) 800 mg PO Q6H PRN PRN Reason: Pain (mild 1-3) Methylergonovine Maleate (Methylergonovine 0.2 Mg/1 Ml Amp) 0.2 mg IM ASDIRECTED PRN PRN Reason: Post Hemorrhage Misoprostol (Misoprostol 25 Mcg (1/4 Of 100 Mcg) Tab) 25 mcg VAG ONETIME PRN PRN Reason: Cervical Ripening Last Admin: 06/24/21 08:32 Dose: 25 mcg Documented by: Misoprostol (Misoprostol 25 Mcg (1/4 Of 100 Mcg) Tab) 25 mcg VAG Q6H PRN PRN Reason: Cervical Ripening Oxycodone HCl (Oxycodone 5 Mg Tab) 5 mg PO Q2H PRN PRN Reason: Pain (severe 7-10) Sodium Chloride (Sodium Chloride 0.9% 10 Ml Syringe) 10 ml FLUSH ASDIRECTED PRN PRN Reason: Keep Vein Open Sodium Chloride (Sodium Chloride 0.9% 2.5 Ml Syringe) 2.5 ml FLUSH ASDIRECTED PRN PRN Reason: Keep Vein Open Sodium Chloride (Sodium Chloride 0.9% 10 Ml Sdv) 10 ml IV ASDIRECTED PRN PRN Reason: IV Use Terbutaline Sulfate (Terbutaline 1 Mg/Ml Sdv) 0.25 mg SUBCUT ASDIRECTED PRN PRN Reason: Tacysystole Witch Darcie (Witch Darcie Medicated Pads 40/Jar) 1 pad TOP ASDIRECTED PRN PRN Reason: comfort care Last Admin: 06/24/21 21:19 Dose: 1 tub Documented by: Discontinued Medications Butorphanol Tartrate (Butorphanol 1 Mg/Ml Sdv) 1 mg IVPUSH Q1H PRN PRN Reason: Pain (severe 7-10) Lactated Ringer's (Ringers, Lactated) 1,000 mls @ 150 mls/hr IV ASDIRECTED [facility] Last Admin: 06/24/21 16:43 Dose: 150 mls/hr Documented by: Ampicillin Sodium 2 gm/ Sodium (Chloride) 100 mls @ 200 mls/hr IV .ONCE [facility] Last Admin: 06/24/21 08:27 Dose: 200 mls/hr Documented by: Ampicillin Sodium 1 gm/ Sodium (Chloride) 50 mls @ 100 mls/hr IV Q4H [facility] Last Admin: 06/24/21 16:43 Dose: 100 mls/hr Documented by: Ropivacaine (Naropin 0.2%) Confirm Administered Dose 200 mls @ as directed .ROUTE .[facility]-MED ONE Stop: 06/24/21 16:15 Lidocaine HCl (Lidocaine 1% 50 Ml Mdv) 50 ml INJECT ONETIME PRN PRN Reason: Laceration repair Misoprostol (Misoprostol 200 Mcg Tab) 200 mcg PO ONETIME PRN PRN Reason: Post Hemorrhage Ondansetron HCl (Ondansetron 4 Mg/2 Ml Sdv) 4 mg IVPUSH Q4H PRN PRN Reason: Nausea/Vomiting Sterile Water (Water For Irrigation,Sterile 1,000 Ml Container) 1,000 ml IRR ASDIRECTED PRN PRN Reason: delivery - Infant Interaction Support Person: - Recovery Exam Fundal Tone: Firm Fundal Level: At Umbilicus Fundal Placement: Midline Lochia Amount: Scant Lochia Color: Rubra/Red Perineum Description: Intact, Minimal Bruising/Swelling Episiotomy/Laceration: None Bladder Status: Voiding Urinary Elimination: Voided Other Urinary Elimination, : unable to stand yet due to epidural - Exam General: Alert, Oriented Lungs: Normal Respiratory Effort Cardiovascular: Regular Rate, Regular Rhythm GI/Abdominal Exam: Normal Bowel Sounds, Soft Extremities: Pedal Edema (trace). No: Lotus's Sign Skin: Warm, Dry, Intact Neurological: No New Focal Deficit - Problem List & Annotations (1) Vaginal delivery SNOMED Code(s): 395642099 Code(s): O80 - ENCOUNTER FOR FULL-TERM UNCOMPLICATED DELIVERY Status: Resolved Current Visit: No Onset Date: ~09/12/19 Annotation/Comment:: Pt delivered 09/12/19 - Problem List Review Problem List Initiated/Reviewed/Updated: Yes - My Orders Last 24 Hours: My Active Orders 06/24/21 07:30 RPR (SYPHILIS SERO) W/ RFLX [REF] Routine 06/24/21 07:58 Oxygen Therapy [RC] ASDIRECTED Vital Signs [RC] PER UNIT ROUTINE Carboprost Tromethamine [Hemabate DS] 250 mcg IM ASDIRECTED PRN Methylergonovine [Methergine] 0.2 mg IM ASDIRECTED PRN Sodium Chloride 0.9% [Normal Saline] 10 ml IV ASDIRECTED PRN Sodium Chloride 0.9% [Saline Flush] 10 ml FLUSH ASDIRECTED PRN Sodium Chloride 0.9% [Saline Flush] 2.5 ml FLUSH ASDIRECTED PRN Terbutaline [Brethine] 0.25 mg SUBCUT ASDIRECTED PRN Tranexamic Acid [Cyklokapron] 1,000 mg Sodium Chloride 0.9% [Normal Saline] 100 ml IV ONETIME miSOPROStoL [Cytotec] 25 mcg VAG ONETIME PRN miSOPROStoL [Cytotec] 25 mcg VAG Q6H PRN Peripheral IV Insertion Adult [OM.PC] Routine Resuscitation Status Routine 06/24/21 08:00 Oxytocin/0.9 % Sodium Chloride [Oxytocin 30 Unit/500 ML-NS] 30 unit in 500 ml IV TITRATE Medication Administration Instruction [OM.PC] Q3H 06/24/21 14:15 Oxytocin/0.9 % Sodium Chloride [Oxytocin 30 Unit/500 ML-NS] 30 unit in 500 ml IV TITRATE 06/24/21 Dinner Regular Diet [DIET] - Assessment Assessment:: Pt is a 36 yo G5 now P4 female s/p PPD#1. - Plan Plan:: Routine cares GBS positive received 3 doses of antibiotics Rubella immune, Rh+ Doing well overall--would like to home later today. Discharge instructions reviewed. Follow up at [facility] 4 weeks. Discharge to home later today.
[2021-06-25] MEDS: Ibuprofen 800 MG Tab PO PRN ×2 (08:00→19:05)
--- NOTE | 2021-06-26 01:43 | OR ---
SURGEON: Yao Delgado MD DATE OF PROCEDURE: 06/24/2021 INDICATION FOR PROCEDURE: A 36-year-old G5, P 3-0-1-3 at 39 weeks and 1 day, presenting for elective induction of labor. The was complicated by advanced maternal age. She is GBS positive, received ampillin for prophylaxis. She received one dose of Cytotec for induction and progressed from 1 cm to 3 cm dilated. Pitocin was then started and she began to have strong contractions. She had spontaneous rupture of membranes with clear fluid. She desired an epidural for pain control which she received. The baby had a consistently category 1 tracing. She then quickly progressed to fully dilated with the urge to push. PREOPERATIVE DIAGNOSES: 1. Ritchie intrauterine at 39 weeks and 1 day. 2. Active labor. POSTOPERATIVE DIAGNOSES: 1. Ritchie intrauterine at 39 weeks and 1 day. 2. Active labor. PROCEDURE PERFORMED: Normal spontaneous vaginal delivery. MARINE CHRONOMETER ASSEMBLER: Tia Vickers, MS4 ANESTHESIA: Epidural. ANESTHESIOLOGIST: Dr. Prater. FINDINGS: Viable male , scores of 6 and 9. weight was 3.58kg The baby had tight triple nuchal cord. DESCRIPTION OF PROCEDURE: The patient pushed with contractions for about 5 minutes with good descent. head delivered in occiput anterior position over intact perineum, restituted ROT. Anterior shoulder delivered easily. Triple nuchal cord that was tight was noticed and reduced after delivery. Posterior shoulder and body delivered without difficulty. The patient was placed on maternal chest and evaluated by awaiting nursery staff. The baby was initially slightly purple, but was crying and moving vigorously. The cord was clamped and cut after 30 seconds and no longer pulsating. Blood gases were obtained. The placenta was removed with gentle traction on the umbilical cord. It was examined to be intact with 3-vessel cord. Pitocin was started. The patient had light bleeding and the fundus was firm and below the umbilicus. The vagina and perineum were examined. She did not have any lacerations. The patient tolerated the procedure well and was given care instructions. CARLIE / DARSHANA /[id number] [facility] HOSPITALHandy
[2021-06-26] MEDS: Ibuprofen 800 MG Tab PO PRN (08:14)
[2021-06-26 08:51] VITALS: BP 119/78; PULSE 65
== END 2021-06-26 11:25 | disposition home or self-care (01) | DRG 560 ==
LOC: MW.OBCHECK 06:58 → MW.OB 06:59 → MW.OBCHECK 07:00 → MW.OB 07:00 → OBSVTOIN 17:12 → MW.OB 22:22
PROVIDERS: ADMIT Obstetrics & Gynecology; ATTEND Obstetrics & Gynecology
PROC: 10E0XZZ Delivery of Products of Conception, External Approach (ICD-10-PCS; principal; 2021-06-24)
PROC: 3E0P7VZ Introduction of Hormone into Female Reproductive, Via Natural or Artificial Opening (ICD-10-PCS; 2021-06-24)
PROC: 3E0R3BZ Introduction of Anesthetic Agent into Spinal Canal, Percutaneous Approach (ICD-10-PCS; 2021-06-24)
DX: O69.1XX0 Labor and delivery complicated by cord around neck, with compression, not applicable or unspecified (principal); Z37.0 Single live birth; O99.824 Streptococcus B carrier state complicating childbirth; O99.62 Diseases of the digestive system complicating childbirth; K21.9 Gastro-esophageal reflux disease without esophagitis; O99.214 Obesity complicating childbirth; Z3A.39 39 weeks gestation of pregnancy
CPT/HCPCS: 01967; 36415; 51702; 59020; 59025; 59409; 85014; 85018; 85027; 86592; 86850; 86900; 86901; A9270-GY; J0290; J2590; J2795; J7120